=== PATIENT | female | born 1985 | race Caucasian/White ===

== ENCOUNTER 2019-11-18 15:03 | Inpatient (IN) | payer OTHER ==
--- NOTE | 2019-11-18 15:34 | BHS.RME ---
Substance Use & Tx History - Substance Use History Alcohol Substance amount: 1 liter vodka Frequency of use: Daily Substance route: Oral Date of Last Use: 11/13/19 Nicotine Substance amount: former smoker Physical/Psych/Mental Status - Behavior General Behavior: Increased activity (restlessness, agitation) Eye Contact: Normal - Cooperativeness Cooperativeness: Cooperative - Thinking Thought Processes: Tight, Logical, Goal Directed Thought content: Future oriented - Physical Health Problems Is patient presently having any pain?: No Does patient presently have any injuries (include location): No Does patient currently have a fever: No Is patient : No
[2019-11-18 18:55] VITALS: BMI 27.4
--- NOTE | 2019-11-18 18:56 | HP ---
CIWA Score - Admission Criteria OASAS Guidelines: Admission for Medically Managed Detox: Requires at least one of the followin. CIWA greater than 12 2. Seizures within the past 24 hours 3. Delirium tremens within the past 24 hours 4. Hallucinations within the past 24 hours 5. Acute intervention needed for co occurring medical disorder 6. Acute intervention needed for co occurring psychiatric disorder 7. Severe withdrawal that cannot be handled at a lower level of care (continued vomiting, continued diarrhea, abnormal vital signs) requiring intravenous medication and/or fluids 8. Admission ROS S - HPI Chief Complaint: Seeking admission to Rehab. Allergies/Adverse Reactions: Allergies Allergy/AdvReac Type Severity Reaction Status Date / Time No Known Allergies Allergy Verified 11/18/19 19:37 History of Present Illness: 34 years old female with a history of alcohol dependence is seeking admission to Rehab. She was referred from [facility]. She has medical history of anemia, pulmonary embolism, GERD and she denies psych. history and suicidal ideation at this time. She had Cepheid COVID - 19 PCR done on that was negative. Exam Limitations: No Limitations, Physical Impairment - Ebola screening Have you had contact with anyone from an Ebola affected area: No Have you been sick,other than usual withdrawal symptoms: No Do you have a fever: No - Review of Systems Constitutional: No Symptoms Reported EENT: reports: No Symptoms Reported Respiratory: reports: No Symptoms reported Cardiac: reports: No Symptoms Reported GI: reports: No Symptoms Reported : reports: No Symptoms Reported Musculoskeletal: reports: No Symptoms Reported Integumentary: reports: No Symptoms Reported, Rash Neuro: reports: No Symptoms reported Endocrine: reports: No Symptoms Reported Hematology: reports: No Symptoms Reported Psychiatric: reports: Mood/Affect Appropiate, Orientated x3 Other Systems: Reviewed and Negative Patient History - Patient Medical History Hx Anemia: Yes Hx Asthma: No Hx Chronic Obstructive Pulmonary Disease (COPD): No Hx Cancer: No Hx Cardiac Disorders: Yes (Pulmonary Embolism) Hx Congestive Heart Failure: No Hx Hypertension: No Hx Hypercholesterolemia: No Hx Pacemaker: No HX Cerebrovascular Accident: No Hx Seizures: No Hx Diabetes: No Hx Gastrointestinal Disorders: Yes (GERD) Hx Liver Disease: No Hx Genitourinary Disorders: No Hx Sexually Transmitted Disorders: No Hx Renal Disease (ESRD): No Hx Thyroid Disease: No Hx Human Immunodeficiency Virus (HIV): No (Negative 2019) Hx Hepatitis C: No Hx Depression: No Hx Suicide Attempt: No (Denies suicidal ideation at this time) Hx Bipolar Disorder: No Hx Schizophrenia: No - Patient Surgical History Past Surgical History: Yes Hx Neurologic Surgery: No Hx Cataract Extraction: No Hx Cardiac Surgery: No Hx Lung Surgery: No Hx Breast Surgery: No Hx Breast Biopsy: No Hx Abdominal Surgery: Yes (GASTRIC BYPASS 2004, ) Hx Appendectomy: No Hx Cholecystectomy: No Hx Genitourinary Surgery: No Hx Section: No Hx Orthopedic Surgery: No Hx Hysterectomy: No Other Surgical History: HERNIA REPAIR, INTUSSUSCEPTION Anesthesia Reaction: No - PPD History Previous Implant?: Yes Documented Results: Negative w/proof Implanted On Prior R Admission?: No PPD to be Administered?: Yes - Reproductive History Patient is a Female of Child Bearing Age (11 -55 yrs old): Yes LMP comment: IRREGULAR - Smoking Cessation Smoking history: Former smoker Have you smoked in the past 12 months: No Hx Chewing Tobacco Use: No Initiated information on smoking cessation: No - Substance & Tx. History Hx Alcohol Use: Yes Hx Substance Use: No Substance Use Type: Alcohol Hx Substance Use Treatment: Yes - Substances abused Alcohol Substance route: Oral Frequency: Daily Amount used: 1/2 LITER OF VODKA Age of first use: 33 Date of last use: 11/14/19 Admission Physical Exam BHS - Physical General Appearance: Yes: Within Normal Limits HEENTM: Yes: Within Normal Limits Respiratory: Yes: Lungs Clear, Normal Breath Sounds, No Respiratory Distress Neck: Yes: Within Normal Limits Breast: Yes: Breast Exam Deferred Cardiology: Yes: Regular Rhythm, Regular Rate Abdominal: Yes: Within Normal Limits Genitourinary: Yes: Within Normal Limits Back: Yes: Normal Inspection Musculoskeletal: Yes: Within Normal Limits Extremities: Yes: Within Normal Limits Neurological: Yes: Within Normal Limits Integumentary: Yes: Within Normal Limits Lymphatic: Yes: Within Normal Limits - Diagnostic (1) Alcohol dependence, uncomplicated Current Visit: Yes Status: Chronic (2) GERD (gastroesophageal reflux disease) Current Visit: Yes Status: Chronic Qualifiers: Esophagitis presence: esophagitis presence not specified Qualified Code(s): K21.9 - Gastro-esophageal reflux disease without esophagitis (3) Pulmonary embolism Current Visit: Yes Status: Chronic Qualifiers: Pulmonary embolism type: unspecified Chronicity: unspecified Acute cor pulmonale presence: unspecified Qualified Code(s): I26.99 - Other pulmonary embolism without acute cor pulmonale (4) Anemia Current Visit: Yes Status: Chronic Qualifiers: Anemia type: iron deficiency Cleared for Admission S - Detox or Rehab [facility] Level of Care: Observation Bed Claeared for Rehab Admission: Yes Inpatient Rehab Admission - Rehab Decision to Admit Inpatient rehab admission?: Yes - Initial Determination Are CD services needed?: No Free of communicable disease: Yes Not in need of hospitalization: Yes - Rehab Admission Criteria Previous failed treatment: Yes Poor recovery environment: Yes Comorbidities: Yes Lacks judgement: Yes Patient is meeting Inpatient Rehab admission criteria:: Yes
[2019-11-18] MEDS ORDERED: P-EPHED 60MG/TRIPROLIDI 2.5MG TABLET PO PRN (20:24)
[2019-11-18] MEDS ORDERED: MAGNESIUM CITRATE 300 ML BOTTLE PO PRN (20:24)
[2019-11-18] MEDS ORDERED: IBUPROFEN 400 MG TABLET (FP) PO PRN (20:24)
[2019-11-18] MEDS ORDERED: MAGNESIUM HYDROX 2400MG/30ML ORAL SUSPENSION 30 ML CUP PO PRN (20:24)
[2019-11-18] MEDS ORDERED: guaiFENesin 200 MG/10 ML 10 ML UNIT-DOSE CUPS PO PRN (20:24)
[2019-11-18] MEDS ORDERED: LOPERAMIDE HCL 2 MG CAPSULE PO PRN (20:24)
[2019-11-18] MEDS ORDERED: TUBERCULIN PPD 5 TU/0.1ML VIAL ID ONE (22:05)
[2019-11-18] MEDS: THIAMINE HCL 100 MG TABLET (FP) PO SCH (22:06)
[2019-11-18] MEDS: MELATONIN 5 MG TABLETS PO SCH (22:07)
[2019-11-19] MEDS: PRENATAL VITAMINS W/ FOLIC ACID TABLET (FP) PO SCH (09:16)
[2019-11-19] MEDS: APIXABAN 5 MG TABLET PO SCH ×2 (09:16→21:42)
[2019-11-19] MEDS ORDERED: BUPRENORPHINE/NALOXONE 8 MG/2 MG FILM PACKET SL ONE (09:30)
[2019-11-19 09:31] LABS: HEMATOCRIT 37.2 % (32.4-45.2); HEMOGLOBIN 12.5 GM/dL (10.7-15.3); MCHC 33.7 g/dl (32.0-36.0); MEAN PLT VOLUME 10.2 fl (7.5-11.1); PLATELET COUNT 254 K/MM3 (134-434); RDW 18.5 % (11.6-15.6); WHITE BLOOD COUNT 6.3 K/mm3 (4.0-10.0)
[2019-11-19 09:39] LABS: ALBUMIN 3.1 g/dl (3.4-5.0); BLOOD UREA NITROGEN 9.9 mg/dL (7-18); CALCIUM 8.3 mg/dL (8.5-10.1); CREATININE 0.5 mg/dL (0.55-1.3); POTASSIUM 4.3 mmol/L (3.5-5.1); TOT PROT 6.4 g/dl (6.4-8.2)
[2019-11-19 10:49] LABS: SICKLE CELL SCREEN NEGATIVE (NEGATIVE)
[2019-11-19] MEDS: BACITRACIN 0.9 GM PACKET TP SCH ×2 (12:53→21:43)
[2019-11-19] MEDS: hydrOXYzine PAMOATE 25 MG CAPSULE (FP) PO PRN ×2 (15:47→21:42)
[2019-11-19] MEDS ORDERED: PT OWN MED DRAWER 7, Y5N ONE (15:48)
[2019-11-19] MEDS: MAG HYDROX/AL HYDROX/SIMETH 30 ML UNIT-DOSE CUP PO PRN (15:49)
[2019-11-19] MEDS: MELATONIN 5 MG TABLETS PO SCH (21:42)
[2019-11-19] MEDS: THIAMINE HCL 100 MG TABLET (FP) PO SCH (21:42)
[2019-11-20] MEDS: BUPRENORPHINE/NALOXONE 8 MG/2 MG FILM PACKET SL SCH (06:24)
--- NOTE | 2019-11-20 09:34 | CONSULT ---
[facility] Psychiatric Consult - Data Date of interview: 11/20/19 Admission source: [facility] Identifying data: Patient is a 34 year old single female, mother of two, domiciled, and currently unemployed ( lost job due to COVID-19), and is supported with her financial savings. This is patient's first admission to rehab at [facility]. Patient admitted to for alcohol dependence. Substance Abuse History: Smoking Cessation. Smoking history: Former smoker. Have you smoked in the past 12 months: No. Hx Chewing Tobacco Use: No. Initiated information on smoking cessation: No. - Substance & Tx. History. Hx Alcohol Use: Yes. Hx Substance Use: No. Substance Use Type: Alcohol. Hx Substance Use Treatment: Yes. - Substances abused. Alcohol. Substance route: Oral. Frequency: Daily. Amount used: 1/2 LITER OF VODKA. Age of first use: 33. Date of last use: 11/14/19 Medical History: Anemia, pulmonary embolism, GERD, Gastric bypass, Psychiatric History: Patient denies history of psychiatric hospitalizations, outpatient psychiatric care and suicide attempt. Reports worsening anxiety since the start of COVID-19. States that she was started on zoloft (unsure of dose and did not take medication after d/c) while receiving medical care at [facility] due to withdrawals from alcohol. At present patient reports feeling anxious and difficulty sleeping. Physical/Sexual Abuse/Trauma History: denies. Mental Status Exam - Mental Status Exam Alert and Oriented to: Time, Place, Person Cognitive Function: Good Patient Appearance: Well Groomed Mood: Anxious Affect: Mood Congruent Patient Behavior: Cooperative (Tearful due to missing her children) Speech Pattern: Appropriate Voice Loudness: Normal Thought Process: Goal Oriented Thought Disorder: Not Present Hallucinations: Denies Suicidal Ideation: Denies Homicidal Ideation: Denies Insight/Judgement: Poor Sleep: Poorly Appetite: Poor Muscle strength/Tone: Normal Gait/Station: Normal Psychiatric Findings - Problem List ([place] 1, 2,3) (1) Alcohol-induced mood disorder Current Visit: Yes Status: Acute (2) Alcohol dependence, uncomplicated Current Visit: Yes Status: Acute (3) Alcohol-induced sleep disorder Current Visit: Yes Status: Acute - Initial Treatment Plan Initial Treatment Plan: Psychoeducation provided. Detoxification in progress. Will d/c Melatonin 5mg HS. Will Zoloft 50mg daily + Melatonin 10mg HS PRN. Benefits and side effects discussed. Verbal consent given.
[2019-11-20] MEDS: PRENATAL VITAMINS W/ FOLIC ACID TABLET (FP) PO SCH (09:52)
[2019-11-20] MEDS: BACITRACIN 0.9 GM PACKET TP SCH ×2 (09:52→21:25)
[2019-11-20] MEDS: APIXABAN 5 MG TABLET PO SCH ×2 (09:52→21:24)
[2019-11-20] MEDS: hydrOXYzine PAMOATE 25 MG CAPSULE (FP) PO PRN ×3 (09:52→21:24)
[2019-11-20] MEDS: SERTRALINE HCL 50 MG TABLET (FP) PO SCH (11:08)
[2019-11-20 15:16] LABS: PH,URINE 5.5 (5.0-8.0); URINE APPEARANCE CLOUDY; URINE BILIRUBIN NEGATIVE (NEGATIVE); URINE COLOR DK YELLOW; URINE GLUCOSE (UA) NEGATIVE (NEGATIVE); URINE KETONE NEGATIVE (NEGATIVE); URINE LEUK ESTERASE NEGATIVE (NEGATIVE); URINE NITRITE NEGATIVE (NEGATIVE); URINE PROTEIN NEGATIVE (NEGATIVE)
[2019-11-20] MEDS: THIAMINE HCL 100 MG TABLET (FP) PO SCH (21:24)
[2019-11-20] MEDS: MELATONIN 5 MG TABLETS PO SCH (21:25)
[2019-11-21] MEDS: ACETAMINOPHEN 325 MG TABLET (FP) PO PRN (06:19)
[2019-11-21] MEDS: BUPRENORPHINE/NALOXONE 8 MG/2 MG FILM PACKET SL SCH (06:19)
[2019-11-21] MEDS: SERTRALINE HCL 50 MG TABLET (FP) PO SCH (09:56)
[2019-11-21] MEDS: BACITRACIN 0.9 GM PACKET TP SCH ×2 (09:56→21:42)
[2019-11-21] MEDS: PRENATAL VITAMINS W/ FOLIC ACID TABLET (FP) PO SCH (09:56)
[2019-11-21] MEDS: hydrOXYzine PAMOATE 25 MG CAPSULE (FP) PO PRN ×3 (09:56→21:42)
[2019-11-21] MEDS: APIXABAN 5 MG TABLET PO SCH ×2 (09:56→21:42)
--- NOTE | 2019-11-21 11:45 | EKG ---
Test Reason : Blood Pressure : / mmHG Vent. Rate : 063 BPM Atrial Rate : 063 BPM P-R Int : 116 ms QRS Dur : 076 ms QT Int : 404 ms P-R-T Axes : 032 064 029 degrees QTc Int : 413 ms NORMAL SINUS RHYTHM NONSPECIFIC T WAVE ABNORMALITY ABNORMAL ECG NO PREVIOUS ECGS AVAILABLE Confirmed by BROOKE CASTLE MD ([id number]) on 11/21/2019 11:44:21 AM Referred By: Confirmed By:BROOKE CASTLE MD
[2019-11-21] MEDS ORDERED: BUPRENORPHINE/NALOXONE 2 MG/0.5 MG FILM PACKET SL ONE (15:18)
[2019-11-21] MEDS: MELATONIN 5 MG TABLETS PO SCH (21:42)
[2019-11-21] MEDS: THIAMINE HCL 100 MG TABLET (FP) PO SCH (21:42)
[2019-11-22] MEDS: BUPRENORPHINE/NALOXONE 8 MG/2 MG FILM PACKET SL SCH (06:30)
[2019-11-22] MEDS: hydrOXYzine PAMOATE 25 MG CAPSULE (FP) PO PRN ×3 (06:32→21:12)
[2019-11-22] MEDS: ACETAMINOPHEN 325 MG TABLET (FP) PO PRN (06:32)
[2019-11-22] MEDS ORDERED: BUPRENORPHINE/NALOXONE 2 MG/0.5 MG FILM PACKET SL SCH (10:00)
[2019-11-22] MEDS: APIXABAN 5 MG TABLET PO SCH ×2 (10:18→21:11)
[2019-11-22] MEDS: BACITRACIN 0.9 GM PACKET TP SCH ×2 (10:18→21:11)
[2019-11-22] MEDS: PRENATAL VITAMINS W/ FOLIC ACID TABLET (FP) PO SCH (10:19)
[2019-11-22] MEDS: SERTRALINE HCL 50 MG TABLET (FP) PO SCH (10:19)
[2019-11-22] MEDS: COLLOIDAL OATMEAL 1 BAR EACH TP PRN (14:36)
[2019-11-22] MEDS: MELATONIN 5 MG TABLETS PO SCH (21:11)
[2019-11-22] MEDS: THIAMINE HCL 100 MG TABLET (FP) PO SCH (21:12)
[2019-11-23] MEDS ORDERED: BUPRENORPHINE/NALOXONE 2 MG/0.5 MG FILM PACKET SL SCH ×2 (06:00→06:15)
[2019-11-23] MEDS: BUPRENORPHINE/NALOXONE 8 MG/2 MG FILM PACKET SL SCH (06:17)
[2019-11-23] MEDS: PRENATAL VITAMINS W/ FOLIC ACID TABLET (FP) PO SCH (09:47)
[2019-11-23] MEDS: APIXABAN 5 MG TABLET PO SCH ×2 (09:47→21:30)
[2019-11-23] MEDS: SERTRALINE HCL 50 MG TABLET (FP) PO SCH (09:48)
[2019-11-23] MEDS: FAMOTIDINE 20 MG TABLET PO SCH (09:48)
[2019-11-23] MEDS: hydrOXYzine PAMOATE 25 MG CAPSULE (FP) PO PRN ×3 (09:49→21:30)
[2019-11-23] MEDS ORDERED: PT OWN MED DRAWER 7, Y5N ONE ×3 (10:54→21:40)
[2019-11-23] MEDS: ARTIFICIAL TEARS (POLYVINYL ALCOHOL) OPTH DROPS OU PRN (10:55)
[2019-11-23] MEDS: VITAMINS A AND D TOPICAL OINTMENT 60 GM TUBE TP SCH ×2 (12:53→18:24)
[2019-11-23] MEDS: GABAPENTIN 300 MG CAPSULE PO SCH ×2 (13:56→21:30)
[2019-11-23] MEDS: DOCUSATE SODIUM 100 MG CAPSULE (FP) PO SCH ×2 (13:56→21:30)
[2019-11-23] MEDS: NEOMYCIN/POLYMYXIN/BACITRACIN (TRIPLE ANTIBIOTIC) 28 GM OINTMENT TP SCH ×2 (14:06→21:32)
[2019-11-23] MEDS: MAG HYDROX/AL HYDROX/SIMETH 30 ML UNIT-DOSE CUP PO PRN (14:37)
--- NOTE | 2019-11-23 14:40 | PN ---
BHS COWS - Scale Resting Pulse: 0= NM 80 or Below Sweatin= No chills or Flushing Restless Observation: 1= Difficult to Sit Still Pupil Size: 0= Normal to Room Light Bone or Joint Aches: 1= Mild Discomfort Runny Nose/ Eye Tearin= Nasal Congestion GI Upset > 30mins: 1= Stomach Cramp Tremor Observation of Outstretched Hands: 4= Gross Tremor/Twitching Yawning Observation: 0= None Anxiety or Irritability: 2=Irritable/Anxious Goose Flesh Skin: 0=Smooth Skin COWS Score: 10 BHS Progress Note (SOAP) Subjective: patient is not experiencing relief from cravings; she is presently on 10 mg daily. She states that her usual dose is 16 mg daily. Objective: general: patient appears anxious HEENTM: normocepehalic, EOMI, PERRLA. Neck:supple, Resp: unlabored ABD; +BS MSK: full weight bearing Neuro: No cognitive deficits 11/23/19 15:00 Assessment: Alcohol use disorder 11/23/19 15:02 Plan: Increased suboxone to 12 mg daily, will monitor.
[2019-11-23] MEDS ORDERED: BUPRENORPHINE/NALOXONE 2 MG/0.5 MG FILM PACKET SL ONE (14:45)
[2019-11-23] MEDS: THIAMINE HCL 100 MG TABLET (FP) PO SCH (21:30)
[2019-11-23] MEDS: MELATONIN 5 MG TABLETS PO SCH (21:31)
[2019-11-23] MEDS ORDERED: SENNOSIDES 8.6MG TABLET (FP) PO SCH (22:00)
[2019-11-24] MEDS: VITAMINS A AND D TOPICAL OINTMENT 60 GM TUBE TP SCH ×4 (00:16→18:02)
[2019-11-24] MEDS ORDERED: BUPRENORPHINE/NALOXONE 4 MG/1 MG FILM PACKET SL SCH (06:00)
[2019-11-24] MEDS ORDERED: PT OWN MED DRAWER 7, Y5N ONE ×3 (06:16→12:47)
[2019-11-24] MEDS: NEOMYCIN/POLYMYXIN/BACITRACIN (TRIPLE ANTIBIOTIC) 28 GM OINTMENT TP SCH ×3 (06:17→21:11)
[2019-11-24] MEDS: BUPRENORPHINE/NALOXONE 8 MG/2 MG FILM PACKET SL SCH (06:17)
[2019-11-24] MEDS: DOCUSATE SODIUM 100 MG CAPSULE (FP) PO SCH ×3 (06:17→21:09)
[2019-11-24] MEDS: GABAPENTIN 300 MG CAPSULE PO SCH (06:17)
[2019-11-24] MEDS: hydrOXYzine PAMOATE 25 MG CAPSULE (FP) PO PRN (08:43)
[2019-11-24] MEDS: APIXABAN 5 MG TABLET PO SCH ×2 (09:55→21:07)
[2019-11-24] MEDS: PRENATAL VITAMINS W/ FOLIC ACID TABLET (FP) PO SCH (09:55)
[2019-11-24] MEDS: ACETAMINOPHEN 325 MG TABLET (FP) PO PRN (09:56)
[2019-11-24] MEDS: SERTRALINE HCL 50 MG TABLET (FP) PO SCH (09:56)
[2019-11-24] MEDS: FAMOTIDINE 20 MG TABLET PO SCH (09:56)
[2019-11-24] MEDS: hydrOXYzine PAMOATE 50 MG CAPSULE (FP) PO PRN ×2 (12:45→21:08)
[2019-11-24] MEDS: ARTIFICIAL TEARS (POLYVINYL ALCOHOL) OPTH DROPS OU PRN (12:47)
--- NOTE | 2019-11-24 13:01 | PN ---
Psychiatric Progress Note Vital Signs: Vital Signs Period Temp Pulse Resp BP Sys/Daniels Pulse Ox Last 24 Hr 97.1 F 64 20 113/71 97-99 Date of Session: 11/24/19 Chief Complaint:: "I'm going through withdrawals." HPI: Patient admitted to for alcohol dependence. Consultation ordered due to patient c/o anxiety. ROS: Patient calm and cooperative at first but then became tearful and anxious, stating i am going through withdrawal Current Medications: Active Medications Generic Name Dose Route Start Last Admin Trade Name Freq PRN Reason Stop Dose Admin Acetaminophen 650 mg 11/18/19 20:24 11/24/19 09:56 Tylenol - PO 650 mg Q4H PRN Administration FEVER Al Hydroxide/Mg Hydroxide 30 ml 11/18/19 20:24 11/23/19 14:37 Mylanta Oral Suspension - PO 30 ml Q6H PRN Administration DYSPEPSIA Apixaban 5 mg 11/19/19 10:00 11/24/19 09:55 Eliquis - PO 5 mg BID SUKHJINDER Administration Artificial Tears 1 drop 11/22/19 12:21 11/24/19 12:47 Artificial Tears OU 1 drop TID PRN Administration DRY EYES Buprenorphine/Naloxone 1 each 11/20/19 06:00 11/24/19 06:17 Suboxone 8 Mg/2 Mg Film Packet SL 1 each DAILY@0600 SUKHJINDER Administration Buprenorphine/Naloxone 1 each 11/24/19 06:00 11/24/19 06:17 Suboxone 4 Mg/1 Mg Film Packet SL 1 each DAILY@0600 SUKHJINDER Administration Colloidal Oatmeal 1 applic 11/22/19 12:09 11/22/19 14:36 Aveeno Soap - TP 1 bar DAILY PRN Administration HYGEINE Docusate Sodium 100 mg 11/23/19 14:00 11/24/19 06:17 Colace - PO 100 mg TID SUKHJINDER Administration Famotidine 20 mg 11/23/19 10:00 11/24/19 09:56 Pepcid - PO 20 mg DAILY SUKHJINDER Administration Gabapentin 300 mg 11/23/19 14:00 11/24/19 06:17 Neurontin - PO 300 mg TID SUKHJINDER Administration Guaifenesin 10 ml 11/18/19 20:24 Robitussin - PO Q6H PRN COUGH Hydroxyzine Pamoate 50 mg 11/24/19 11:44 11/24/19 12:45 Vistaril - PO 50 mg Q6H PRN Administration ANXIETY Loperamide HCl 4 mg 11/18/19 20:24 Imodium - PO Q6H PRN DIARRHEA Magnesium Citrate 300 ml 11/18/19 20:24 Citroma - PO Q48H PRN CONSTIPATION Magnesium Hydroxide 30 ml 11/18/19 20:24 Milk Of Magnesia - PO DAILY PRN CONSTIPATION Melatonin 10 mg 11/20/19 22:00 11/23/19 21:31 Melatonin PO 10 mg HS SUKHJINDER Administration Multi-Ingredient Lotion 1 applic 11/24/19 12:57 Eucerin (Large Jar) - TP BID PRN DRY SKIN Neomycin/Polymyxin/Bacitracin 1 applic 11/23/19 14:00 11/24/19 06:17 Neosporin Topical Ointment - TP Not Given TID SUKHJINDER Multivit/Folic Acid/Iron 1 tab 11/19/19 10:00 11/24/19 09:55 Vitamins (Sjr) - PO 1 tab DAILY SUKHJINDER Administration Pseudoephedrine/Triprolidine 1 combo 11/18/19 20:24 Actifed - PO TID PRN NASAL CONGESTION Senna 8.6 tab 11/23/19 22:00 11/23/19 21:32 Senna - PO Not Given HS SUKHJINDER Sertraline HCl 50 mg 11/20/19 10:45 11/24/19 09:56 Zoloft - PO 50 mg DAILY SUKHJINDER Administration Thiamine HCl 100 mg 11/18/19 22:00 11/23/19 21:30 Vitamin B1 - PO 100 mg HS SUKHJINDER Administration Vitamin A/Vitamin D 1 applic 11/23/19 12:00 11/24/19 12:45 Vitamin A & D Top Oint - TP Not Given Q6HPO [facility] Medication(s) Change(s): Yes. Current Side Effect: No Lab tests ordered: No Lab tests reviewed: Yes Provider note:: Ms. Sauceda reports having worsening withdrawals which she states is making her anxious. In addition, Mr. Sauceda also reports difficulty sleeping through the night. Medications reviewed. Will d/c Vistaril 25mg q4h and will order vistaril 50mg q6h + Belsomra 10mg HS PRN. Case discussed with ZEB Wilson. As per ZEB Wilson, Plan is to increase suboxone + Gabapentin dose. Please review ZEB Wilson note for additional information. Total face to face time:: 25 Mental Status Exam - Mental Status Exam Alert and Oriented to: Time, Place, Person Cognitive Function: Good Patient Appearance: Well Groomed Mood: Anxious Affect: Mood Congruent Patient Behavior: Crying (Tearful), Cooperative Speech Pattern: Appropriate Voice Loudness: Normal Thought Process: Goal Oriented Thought Disorder: Not Present Hallucinations: Denies Suicidal Ideation: Denies Homicidal Ideation: Denies Insight/Judgement: Poor Sleep: Poorly Appetite: Fair Muscle strength/Tone: Normal Gait/Station: Normal Psychiatric Treatment Plan - Problem List (1) Alcohol-induced mood disorder Current Visit: Yes (2) Alcohol dependence, uncomplicated Current Visit: Yes (3) Alcohol-induced sleep disorder Current Visit: Yes
[2019-11-24] MEDS: GABAPENTIN 400 MG CAPSULE PO SCH ×2 (13:59→21:07)
[2019-11-24] MEDS ORDERED: BUPRENORPHINE/NALOXONE 8 MG/2 MG FILM PACKET SL SCH (14:00)
[2019-11-24] MEDS ORDERED: BUPRENORPHINE/NALOXONE 4 MG/1 MG FILM PACKET SL ONE (14:00)
[2019-11-24] MEDS: SENNOSIDES 8.6MG TABLET (FP) PO SCH (21:07)
[2019-11-24] MEDS: THIAMINE HCL 100 MG TABLET (FP) PO SCH (21:07)
[2019-11-24] MEDS: SUVOREXANT 10 MG TABLET PO PRN (21:08)
[2019-11-24] MEDS: MELATONIN 5 MG TABLETS PO SCH (21:08)
[2019-11-25] MEDS: VITAMINS A AND D TOPICAL OINTMENT 60 GM TUBE TP SCH ×4 (00:30→18:17)
[2019-11-25] MEDS ORDERED: PT OWN MED DRAWER 7, Y5N ONE ×4 (05:13→14:28)
[2019-11-25] MEDS: MINERAL OIL/PETROLAT/WATER TOPICAL CREAM 113 GM JAR TP PRN ×2 (06:09→09:36)
[2019-11-25] MEDS: GABAPENTIN 400 MG CAPSULE PO SCH ×3 (06:11→21:18)
[2019-11-25] MEDS: BUPRENORPHINE/NALOXONE 8 MG/2 MG FILM PACKET SL SCH ×2 (06:11→14:13)
[2019-11-25] MEDS: DOCUSATE SODIUM 100 MG CAPSULE (FP) PO SCH ×3 (06:11→21:18)
[2019-11-25] MEDS: NEOMYCIN/POLYMYXIN/BACITRACIN (TRIPLE ANTIBIOTIC) 28 GM OINTMENT TP SCH ×3 (06:12→21:20)
[2019-11-25] MEDS: hydrOXYzine PAMOATE 50 MG CAPSULE (FP) PO PRN ×3 (07:17→21:18)
[2019-11-25] MEDS: PRENATAL VITAMINS W/ FOLIC ACID TABLET (FP) PO SCH (09:36)
[2019-11-25] MEDS: APIXABAN 5 MG TABLET PO SCH ×2 (09:36→21:18)
[2019-11-25] MEDS: SERTRALINE HCL 50 MG TABLET (FP) PO SCH (09:36)
[2019-11-25] MEDS: FAMOTIDINE 20 MG TABLET PO SCH (09:37)
--- NOTE | 2019-11-25 12:02 | PN ---
[facility] Progress Note Note: PATIENT EVALUATED FOR REQUEST FOR CHEST XRAY. PATIENT INFORMED PROVIDER, SHE FEELS ANXIOUS ABOUT HER LUNGS AFTER BEING DX WITH PE. SHE REPORTS HAVING INTERMITTED PALPITATIONS (CAN BE ANXIETY RELATED) BUT DENIES COUGH, SOB AND CHEST PAIN. PATIENT IS ANXIOUS AND HAS BEEN EVALUATED BY PSYCH TEAM. CURRENTLY ON VISTARIL FOR SYMPTOM MANAGEMENT. PATIENT HAS HX OF GASTRIC BYPASS, ALCOHOL USE, OPIATE USE AND VAPING. Vital Signs Temperature 98.2 F 11/25/19 06:05 Pulse Rate 53 L 11/25/19 06:05 Respiratory Rate 16 11/25/19 06:05 Blood Pressure 114/76 11/25/19 06:05 O2 Sat by Pulse Oximetry (%) 98 11/25/19 06:05 Laboratory Tests 11/18/19 11/19/19 11/19/19 18:51 07:40 07:40 WBC 6.3 RBC 3.80 Hgb 12.5 Hct 37.2 MCV 98.0 H MCH 33.0 MCHC 33.7 RDW 18.5 H Plt Count 254 MPV 10.2 Sickle Cell Screen Negative Sodium 143 Potassium 4.3 Chloride 109 H Carbon Dioxide 27 Anion Gap 7 L BUN 9.9 Creatinine 0.5 L Est GFR (CKD-EPI)AfAm 144.31 Est GFR (CKD-EPI)NonAf 124.51 Random Glucose 80 Calcium 8.3 L Total Bilirubin 1.0 AST 108 H ALT 97 H Alkaline Phosphatase 170 H Total Protein 6.4 Albumin 3.1 L Urine Color Urine Appearance Urine pH Ur Specific [place] Urine Protein Urine Glucose (UA) Urine Ketones Urine Blood Urine Nitrite Urine Bilirubin Urine Urobilinogen Ur Leukocyte Esterase POC Urine HCG, Qual Negative Syphilis Serology 11/19/19 11/20/19 07:40 07:00 WBC RBC Hgb Hct MCV MCH MCHC RDW Plt Count MPV Sickle Cell Screen Sodium Potassium Chloride Carbon Dioxide Anion Gap BUN Creatinine Est GFR (CKD-EPI)AfAm Est GFR (CKD-EPI)NonAf Random Glucose Calcium Total Bilirubin AST ALT Alkaline Phosphatase Total Protein Albumin Urine Color Dk yellow Urine Appearance Cloudy Urine pH 5.5 Ur Specific [place] 1.018 Urine Protein Negative Urine Glucose (UA) Negative Urine Ketones Negative Urine Blood Negative Urine Nitrite Negative Urine Bilirubin Negative Urine Urobilinogen 1.0 Ur Leukocyte Esterase Negative POC Urine HCG, Qual Syphilis Serology Non-reactive PE ALERT AND ORIENTED X 3 SKIN WARM AND DRY +EOMS INTACT BREATHING WELL ON ROOM AIR, DENIES SOB AND PALPITATIONS AT THIS TIME ANXIOUS/TEARFUL EXT FULL ROM, AMB AD ESTEPHANIE +TREMORS DENIES SI/HI A/P: HX OF PE/VAPING/PALPITATION ANXIETY WILL ORDER CXR VISTARIL CONTINUED PER PSYCH ORDER WILL DISCUSS IF CLONIDINE ON NEEDED BASIS APPROPRIATE WITH DR. BRUNO BEFORE INITIATING TREATMENT SUBOXONE TO BE CHANGED TO 8MG-2MG SL 2 FILMS DAILY AT 6AM (PT REQUEST) CONTINUE TO MONITOR CLINICALLY
[2019-11-25] MEDS: ARTIFICIAL TEARS (POLYVINYL ALCOHOL) OPTH DROPS OU PRN (14:18)
[2019-11-25] MEDS: SUVOREXANT 10 MG TABLET PO PRN (21:18)
[2019-11-25] MEDS: THIAMINE HCL 100 MG TABLET (FP) PO SCH (21:18)
[2019-11-25] MEDS: SENNOSIDES 8.6MG TABLET (FP) PO SCH (21:19)
[2019-11-25] MEDS: MELATONIN 5 MG TABLETS PO SCH (21:20)
[2019-11-26] MEDS: VITAMINS A AND D TOPICAL OINTMENT 60 GM TUBE TP SCH ×5 (00:24→23:49)
[2019-11-26] MEDS: NEOMYCIN/POLYMYXIN/BACITRACIN (TRIPLE ANTIBIOTIC) 28 GM OINTMENT TP SCH ×3 (07:00→21:19)
[2019-11-26] MEDS: GABAPENTIN 400 MG CAPSULE PO SCH ×3 (07:01→21:16)
[2019-11-26] MEDS: DOCUSATE SODIUM 100 MG CAPSULE (FP) PO SCH ×3 (07:01→21:16)
[2019-11-26] MEDS: BUPRENORPHINE/NALOXONE 8 MG/2 MG FILM PACKET SL SCH ×2 (07:01→14:05)
[2019-11-26] MEDS: SERTRALINE HCL 50 MG TABLET (FP) PO SCH (10:06)
[2019-11-26] MEDS: PRENATAL VITAMINS W/ FOLIC ACID TABLET (FP) PO SCH (10:06)
[2019-11-26] MEDS: APIXABAN 5 MG TABLET PO SCH ×2 (10:06→21:15)
[2019-11-26] MEDS: FAMOTIDINE 20 MG TABLET PO SCH (10:06)
[2019-11-26] MEDS: hydrOXYzine PAMOATE 50 MG CAPSULE (FP) PO PRN ×2 (10:08→16:57)
[2019-11-26] MEDS: MINERAL OIL/PETROLAT/WATER TOPICAL CREAM 113 GM JAR TP PRN (10:10)
[2019-11-26] MEDS: ACETAMINOPHEN 325 MG TABLET (FP) PO PRN (10:11)
[2019-11-26] MEDS: SENNOSIDES 8.6MG TABLET (FP) PO SCH (21:15)
[2019-11-26] MEDS: THIAMINE HCL 100 MG TABLET (FP) PO SCH (21:16)
[2019-11-26] MEDS: SUVOREXANT 10 MG TABLET PO PRN (21:17)
[2019-11-26] MEDS: MELATONIN 5 MG TABLETS PO SCH (21:19)
[2019-11-27] MEDS ORDERED: PT OWN MED DRAWER 7, Y5N ONE ×2 (03:05→06:35)
[2019-11-27] MEDS: DOCUSATE SODIUM 100 MG CAPSULE (FP) PO SCH ×3 (06:33→21:40)
[2019-11-27] MEDS: NEOMYCIN/POLYMYXIN/BACITRACIN (TRIPLE ANTIBIOTIC) 28 GM OINTMENT TP SCH ×3 (06:33→21:40)
[2019-11-27] MEDS: VITAMINS A AND D TOPICAL OINTMENT 60 GM TUBE TP SCH ×4 (06:33→23:33)
[2019-11-27] MEDS: GABAPENTIN 400 MG CAPSULE PO SCH ×3 (06:33→21:39)
[2019-11-27] MEDS: BUPRENORPHINE/NALOXONE 8 MG/2 MG FILM PACKET SL SCH ×2 (06:34→13:50)
[2019-11-27] MEDS: MINERAL OIL/PETROLAT/WATER TOPICAL CREAM 113 GM JAR TP PRN (06:35)
[2019-11-27] MEDS: hydrOXYzine PAMOATE 50 MG CAPSULE (FP) PO PRN ×2 (10:13→21:39)
[2019-11-27] MEDS: APIXABAN 5 MG TABLET PO SCH ×2 (10:13→21:39)
[2019-11-27] MEDS: SERTRALINE HCL 50 MG TABLET (FP) PO SCH (10:13)
[2019-11-27] MEDS: FAMOTIDINE 20 MG TABLET PO SCH (10:13)
[2019-11-27] MEDS: PRENATAL VITAMINS W/ FOLIC ACID TABLET (FP) PO SCH (10:14)
[2019-11-27] MEDS: THIAMINE HCL 100 MG TABLET (FP) PO SCH (21:39)
[2019-11-27] MEDS: SENNOSIDES 8.6MG TABLET (FP) PO SCH (21:40)
[2019-11-27] MEDS: MELATONIN 5 MG TABLETS PO SCH (21:40)
[2019-11-27] MEDS: SUVOREXANT 10 MG TABLET PO PRN (21:42)
[2019-11-27] MEDS ORDERED: SUVOREXANT 10 MG TABLET PO PRN (22:00)
[2019-11-28] MEDS: VITAMINS A AND D TOPICAL OINTMENT 60 GM TUBE TP SCH ×3 (06:25→17:11)
[2019-11-28] MEDS: NEOMYCIN/POLYMYXIN/BACITRACIN (TRIPLE ANTIBIOTIC) 28 GM OINTMENT TP SCH ×3 (06:25→21:34)
[2019-11-28] MEDS: GABAPENTIN 400 MG CAPSULE PO SCH ×3 (06:26→21:33)
[2019-11-28] MEDS: DOCUSATE SODIUM 100 MG CAPSULE (FP) PO SCH ×3 (06:26→21:34)
[2019-11-28] MEDS: BUPRENORPHINE/NALOXONE 8 MG/2 MG FILM PACKET SL SCH (06:26)
[2019-11-28] MEDS: SERTRALINE HCL 50 MG TABLET (FP) PO SCH (09:57)
[2019-11-28] MEDS: PRENATAL VITAMINS W/ FOLIC ACID TABLET (FP) PO SCH (09:57)
[2019-11-28] MEDS: hydrOXYzine PAMOATE 50 MG CAPSULE (FP) PO PRN ×3 (09:57→22:32)
[2019-11-28] MEDS: FAMOTIDINE 20 MG TABLET PO SCH (09:57)
[2019-11-28] MEDS: APIXABAN 5 MG TABLET PO SCH ×2 (09:57→21:33)
[2019-11-28] MEDS: MINERAL OIL/PETROLAT/WATER TOPICAL CREAM 113 GM JAR TP PRN (09:58)
[2019-11-28] MEDS ORDERED: BUPRENORPHINE/NALOXONE 8 MG/2 MG FILM PACKET SL ONE (11:06)
--- NOTE | 2019-11-28 12:51 | PN ---
S Progress Note Note: Patient reports sleeping poorly despite taking Belsomra 10 mg/hs prn. Will increase Belsomra dosage to 15 mg/hs prn
--- NOTE | 2019-11-28 13:03 | PN ---
[facility] Progress Note Note: Patient seen for follow up CXR also requesting to be evaluated by psych due to poor sleep. Vital Signs Temperature 97.0 F L 11/28/19 06:25 Pulse Rate 54 L 11/28/19 06:25 Respiratory Rate 187 H 11/28/19 06:25 Blood Pressure 111/75 11/28/19 06:25 O2 Sat by Pulse Oximetry (%) 100 11/28/19 06:25 Laboratory Tests 11/18/19 11/19/19 11/19/19 18:51 07:40 07:40 WBC 6.3 RBC 3.80 Hgb 12.5 Hct 37.2 MCV 98.0 H MCH 33.0 MCHC 33.7 RDW 18.5 H Plt Count 254 MPV 10.2 Sickle Cell Screen Negative Sodium 143 Potassium 4.3 Chloride 109 H Carbon Dioxide 27 Anion Gap 7 L BUN 9.9 Creatinine 0.5 L Est GFR (CKD-EPI)AfAm 144.31 Est GFR (CKD-EPI)NonAf 124.51 Random Glucose 80 Calcium 8.3 L Total Bilirubin 1.0 AST 108 H ALT 97 H Alkaline Phosphatase 170 H Total Protein 6.4 Albumin 3.1 L Urine Color Urine Appearance Urine pH Ur Specific [place] Urine Protein Urine Glucose (UA) Urine Ketones Urine Blood Urine Nitrite Urine Bilirubin Urine Urobilinogen Ur Leukocyte Esterase POC Urine HCG, Qual Negative Syphilis Serology 11/19/19 11/20/19 07:40 07:00 WBC RBC Hgb Hct MCV MCH MCHC RDW Plt Count MPV Sickle Cell Screen Sodium Potassium Chloride Carbon Dioxide Anion Gap BUN Creatinine Est GFR (CKD-EPI)AfAm Est GFR (CKD-EPI)NonAf Random Glucose Calcium Total Bilirubin AST ALT Alkaline Phosphatase Total Protein Albumin Urine Color Dk yellow Urine Appearance Cloudy Urine pH 5.5 Ur Specific [place] 1.018 Urine Protein Negative Urine Glucose (UA) Negative Urine Ketones Negative Urine Blood Negative Urine Nitrite Negative Urine Bilirubin Negative Urine Urobilinogen 1.0 Ur Leukocyte Esterase Negative POC Urine HCG, Qual Syphilis Serology Non-reactive ROS: denies cough, sob and fever. Complains of poor sleep despite taking Belsomra. PE alert and oriented x 3 skin warm and dry in no acute distress ext amb ad [place], full rom mild tremors (improved since last exam) A/P: Normal CXR Insomnia Psych consult ordered continue with rehab services
[2019-11-28] MEDS ORDERED: PT OWN MED DRAWER 7, Y5N ONE (18:47)
[2019-11-28] MEDS: THIAMINE HCL 100 MG TABLET (FP) PO SCH (21:34)
[2019-11-28] MEDS: MELATONIN 5 MG TABLETS PO SCH (21:34)
[2019-11-28] MEDS: SENNOSIDES 8.6MG TABLET (FP) PO SCH (21:34)
[2019-11-28] MEDS ORDERED: SUVOREXANT 15 MG TABLET PO PRN (22:00)
[2019-11-28] MEDS: MAG HYDROX/AL HYDROX/SIMETH 30 ML UNIT-DOSE CUP PO PRN (22:31)
[2019-11-29] MEDS: VITAMINS A AND D TOPICAL OINTMENT 60 GM TUBE TP SCH ×5 (00:30→23:48)
[2019-11-29] MEDS: GABAPENTIN 400 MG CAPSULE PO SCH ×3 (06:18→21:18)
[2019-11-29] MEDS: DOCUSATE SODIUM 100 MG CAPSULE (FP) PO SCH ×3 (06:18→21:18)
[2019-11-29] MEDS: hydrOXYzine PAMOATE 50 MG CAPSULE (FP) PO PRN ×3 (06:18→21:18)
[2019-11-29] MEDS: BUPRENORPHINE/NALOXONE 8 MG/2 MG FILM PACKET SL SCH (06:19)
[2019-11-29] MEDS: NEOMYCIN/POLYMYXIN/BACITRACIN (TRIPLE ANTIBIOTIC) 28 GM OINTMENT TP SCH ×3 (06:22→21:19)
[2019-11-29] MEDS ORDERED: MASKS NR ONE (08:52)
[2019-11-29] MEDS: APIXABAN 5 MG TABLET PO SCH ×2 (09:51→21:18)
[2019-11-29] MEDS: PRENATAL VITAMINS W/ FOLIC ACID TABLET (FP) PO SCH (09:51)
[2019-11-29] MEDS: SERTRALINE HCL 50 MG TABLET (FP) PO SCH (09:51)
[2019-11-29] MEDS: MINERAL OIL/PETROLAT/WATER TOPICAL CREAM 113 GM JAR TP PRN (09:51)
[2019-11-29] MEDS: FAMOTIDINE 20 MG TABLET PO SCH (09:51)
[2019-11-29] MEDS: MAG HYDROX/AL HYDROX/SIMETH 30 ML UNIT-DOSE CUP PO PRN (14:46)
--- NOTE | 2019-11-29 14:55 | PN ---
BHS Progress Note Note: Patient with c/o ankle edema. Vital Signs Period Temp Pulse Resp BP Sys/Daniels Pulse Ox Last 24 Hr 97.1 F 78 20 104/69 98-100 General: no apparent distress HEENTM: normocephalic Neck: supple Resp: unlabored MSK: full weight bearing, steady gait Extremities: bilateral edema, non-pitting ankles only. LE edema EVAN Stockings ordered Instructed patient to elevate legs when at rest Walk frequently in hallway.
--- NOTE | 2019-11-29 15:06 | PN ---
BHS Progress Note Note: Patient not responding to Belsomra 15 mg/hs prn for insomnia. Will increase Belsomra dose to 20 mg/hs prn
[2019-11-29] MEDS ORDERED: PT OWN MED DRAWER 7, Y5N ONE (15:38)
[2019-11-29] MEDS: SUVOREXANT 10 MG TABLET PO PRN (21:17)
[2019-11-29] MEDS: SENNOSIDES 8.6MG TABLET (FP) PO SCH (21:18)
[2019-11-29] MEDS: MELATONIN 5 MG TABLETS PO SCH (21:19)
[2019-11-29] MEDS: THIAMINE HCL 100 MG TABLET (FP) PO SCH (21:19)
[2019-11-29] MEDS: COLLOIDAL OATMEAL 1 BAR EACH TP PRN (21:49)
[2019-11-30] MEDS ORDERED: PT OWN MED DRAWER 7, Y5N ONE (06:26)
[2019-11-30] MEDS: MINERAL OIL/PETROLAT/WATER TOPICAL CREAM 113 GM JAR TP PRN (06:26)
[2019-11-30] MEDS: VITAMINS A AND D TOPICAL OINTMENT 60 GM TUBE TP SCH ×3 (06:27→19:47)
[2019-11-30] MEDS: hydrOXYzine PAMOATE 50 MG CAPSULE (FP) PO PRN ×3 (06:27→21:32)
[2019-11-30] MEDS: NEOMYCIN/POLYMYXIN/BACITRACIN (TRIPLE ANTIBIOTIC) 28 GM OINTMENT TP SCH ×3 (06:27→21:34)
[2019-11-30] MEDS: DOCUSATE SODIUM 100 MG CAPSULE (FP) PO SCH ×3 (06:27→21:33)
[2019-11-30] MEDS: GABAPENTIN 400 MG CAPSULE PO SCH ×3 (06:27→21:32)
[2019-11-30] MEDS: BUPRENORPHINE/NALOXONE 8 MG/2 MG FILM PACKET SL SCH (06:27)
[2019-11-30] MEDS: PRENATAL VITAMINS W/ FOLIC ACID TABLET (FP) PO SCH (09:47)
[2019-11-30] MEDS: APIXABAN 5 MG TABLET PO SCH ×2 (09:48→21:32)
[2019-11-30] MEDS: SERTRALINE HCL 50 MG TABLET (FP) PO SCH (09:48)
[2019-11-30] MEDS: FAMOTIDINE 20 MG TABLET PO SCH (09:50)
[2019-11-30] MEDS: THIAMINE HCL 100 MG TABLET (FP) PO SCH (21:32)
[2019-11-30] MEDS: SENNOSIDES 8.6MG TABLET (FP) PO SCH (21:32)
[2019-11-30] MEDS: SUVOREXANT 10 MG TABLET PO PRN (21:33)
[2019-11-30] MEDS: MELATONIN 5 MG TABLETS PO SCH (21:34)
[2019-12-01] MEDS: BUPRENORPHINE/NALOXONE 8 MG/2 MG FILM PACKET SL SCH (06:27)
[2019-12-01] MEDS: VITAMINS A AND D TOPICAL OINTMENT 60 GM TUBE TP SCH ×5 (06:30→23:42)
[2019-12-01] MEDS: NEOMYCIN/POLYMYXIN/BACITRACIN (TRIPLE ANTIBIOTIC) 28 GM OINTMENT TP SCH ×3 (06:30→21:23)
[2019-12-01] MEDS: MINERAL OIL/PETROLAT/WATER TOPICAL CREAM 113 GM JAR TP PRN (06:30)
[2019-12-01] MEDS: DOCUSATE SODIUM 100 MG CAPSULE (FP) PO SCH ×3 (06:30→21:23)
[2019-12-01] MEDS: GABAPENTIN 400 MG CAPSULE PO SCH ×3 (07:05→21:22)
[2019-12-01] MEDS: SERTRALINE HCL 50 MG TABLET (FP) PO SCH (09:45)
[2019-12-01] MEDS: PRENATAL VITAMINS W/ FOLIC ACID TABLET (FP) PO SCH (09:45)
[2019-12-01] MEDS: APIXABAN 5 MG TABLET PO SCH ×2 (09:45→21:22)
[2019-12-01] MEDS: FAMOTIDINE 20 MG TABLET PO SCH (09:46)
[2019-12-01] MEDS: ACETAMINOPHEN 325 MG TABLET (FP) PO PRN (09:46)
--- NOTE | 2019-12-01 10:10 | PN ---
Psychiatric Progress Note Vital Signs: Vital Signs Period Temp Pulse Resp BP Sys/Daniels Pulse Ox Last 24 Hr 97.5 F 62 20 113/67 98-99 Date of Session: 12/01/19 Chief Complaint:: "I feel anxious, sometimes sad, and still can't sleep." HPI: Patient admitted to for alcohol dependence. Consultation ordered due to patient reporting anxiety and insomnia. ROS: Patient is alert +oriented X3, cooperative but anxious. Current Medications: Active Medications Generic Name Dose Route Start Last Admin Trade Name Freq PRN Reason Stop Dose Admin Acetaminophen 650 mg 11/18/19 20:24 12/01/19 09:46 Tylenol - PO 650 mg Q4H PRN Administration FEVER Al Hydroxide/Mg Hydroxide 30 ml 11/18/19 20:24 11/29/19 14:46 Mylanta Oral Suspension - PO 30 ml Q6H PRN Administration DYSPEPSIA Apixaban 5 mg 11/19/19 10:00 12/01/19 09:45 Eliquis - PO 5 mg BID SUKHJINDER Administration Artificial Tears 1 drop 11/22/19 12:21 11/25/19 14:18 Artificial Tears OU 1 drop TID PRN Administration DRY EYES Buprenorphine/Naloxone 2 each 11/29/19 06:00 12/01/19 06:27 Suboxone 8 Mg/2 Mg Film Packet SL 12/05/19 05:59 2 each DAILY@0600 SUKHJINDER Administration Clonidine 0.1 mg 11/25/19 12:32 Catapres - PO DAILY PRN ANXIETY Colloidal Oatmeal 1 applic 11/22/19 12:09 11/29/19 21:49 Aveeno Soap - TP 1 bar DAILY PRN Administration HYGEINE Docusate Sodium 100 mg 11/23/19 14:00 12/01/19 06:30 Colace - PO 100 mg TID SUKHJINDER Administration Famotidine 20 mg 11/23/19 10:00 12/01/19 09:46 Pepcid - PO 20 mg DAILY SUKHJINDER Administration Gabapentin 400 mg 11/24/19 14:00 12/01/19 07:05 Neurontin - PO 400 mg TID SUKHJINDER Administration Guaifenesin 10 ml 11/18/19 20:24 Robitussin - PO Q6H PRN COUGH Hydroxyzine Pamoate 50 mg 11/24/19 11:44 09/23/20 21:32 Vistaril - PO 50 mg Q6H PRN Administration ANXIETY Loperamide HCl 4 mg 11/18/19 20:24 Imodium - PO Q6H PRN DIARRHEA Magnesium Citrate 300 ml 11/18/19 20:24 Citroma - PO Q48H PRN CONSTIPATION Magnesium Hydroxide 30 ml 11/18/19 20:24 Milk Of Magnesia - PO DAILY PRN CONSTIPATION Melatonin 10 mg 11/20/19 22:00 11/30/19 21:34 Melatonin PO 10 mg HS SUKHJINDER Administration Multi-Ingredient Lotion 1 applic 11/24/19 12:57 12/01/19 06:30 Eucerin (Small Jar) - TP 1 applic BID PRN Administration DRY SKIN Neomycin/Polymyxin/Bacitracin 1 applic 11/23/19 14:00 12/01/19 06:30 Neosporin Topical Ointment - TP 1 applic TID SUKHJINDER Administration Multivit/Folic Acid/Iron 1 tab 11/19/19 10:00 12/01/19 09:45 Vitamins (Sjr) - PO 1 tab DAILY SUKHJINDER Administration Pseudoephedrine/Triprolidine 1 combo 11/18/19 20:24 Actifed - PO TID PRN NASAL CONGESTION Senna 1 tab 11/24/19 22:00 11/30/19 21:32 Senna - PO Not Given HS SUKHJINDER Suvorexant 20 mg 11/29/19 22:00 11/30/19 21:33 Belsomra PO 12/02/19 21:59 20 mg HS PRN Administration INSOMNIA Thiamine HCl 100 mg 11/18/19 22:00 11/30/19 21:32 Vitamin B1 - PO 100 mg HS SUKHJINDER Administration Trazodone HCl 50 mg 12/01/19 22:00 Desyrel - PO HS SUKHJINDER Vitamin A/Vitamin D 1 applic 11/23/19 12:00 12/01/19 07:05 Vitamin A & D Top Oint - TP 1 applic Q6HPO SUKHJINDER Administration Medication(s) Change(s): Yes. 1)Will d/c Zoloft 50mg daily. 2) Will order Zoloft 100mg daily + Trazodone 50mg HS. Benefits and side effects discussed. Verbal consent given. Current Side Effect: No Lab tests ordered: No Lab tests reviewed: Yes Provider note:: Chart reviewed. Patient with a history of alcohol dependence. Today patient reports continued anxiety, moments of sadness, and poor sleep since admission. Medications reviewed. Patient given positive reassurance and educated on the importance of utilizing her coping skills. Medications to be adjusted (please review section of medication changes). Patient denies thoughts or urges to hurt self or others. Total face to face time:: 25 Mental Status Exam - Mental Status Exam Alert and Oriented to: Time, Place, Person Cognitive Function: Good Patient Appearance: Well Groomed Mood: Anxious Affect: Mood Congruent Patient Behavior: Cooperative Speech Pattern: Appropriate Voice Loudness: Normal Thought Process: Intact, Goal Oriented Thought Disorder: Not Present Hallucinations: Denies Suicidal Ideation: Denies Homicidal Ideation: Denies Insight/Judgement: Poor Sleep: Poorly Appetite: Fair Muscle strength/Tone: Normal Gait/Station: Normal Psychiatric Treatment Plan - Problem List (1) Alcohol-induced mood disorder Current Visit: Yes (2) Alcohol dependence, uncomplicated Current Visit: Yes (3) Alcohol-induced sleep disorder Current Visit: Yes
[2019-12-01] MEDS ORDERED: PT OWN MED DRAWER 7, Y5N ONE (14:55)
[2019-12-01] MEDS: hydrOXYzine PAMOATE 50 MG CAPSULE (FP) PO PRN ×2 (15:02→21:22)
[2019-12-01] MEDS: MAG HYDROX/AL HYDROX/SIMETH 30 ML UNIT-DOSE CUP PO PRN (15:32)
[2019-12-01] MEDS: THIAMINE HCL 100 MG TABLET (FP) PO SCH (21:22)
[2019-12-01] MEDS: SENNOSIDES 8.6MG TABLET (FP) PO SCH (21:23)
[2019-12-01] MEDS: MELATONIN 5 MG TABLETS PO SCH (21:23)
[2019-12-01] MEDS: traZODone HCL 50 MG TABLET (FP) PO SCH (21:24)
[2019-12-01] MEDS: SUVOREXANT 10 MG TABLET PO PRN (21:24)
[2019-12-02] MEDS: GABAPENTIN 400 MG CAPSULE PO SCH ×3 (06:25→21:59)
[2019-12-02] MEDS: NEOMYCIN/POLYMYXIN/BACITRACIN (TRIPLE ANTIBIOTIC) 28 GM OINTMENT TP SCH ×3 (06:25→22:01)
[2019-12-02] MEDS: BUPRENORPHINE/NALOXONE 8 MG/2 MG FILM PACKET SL SCH (06:25)
[2019-12-02] MEDS: hydrOXYzine PAMOATE 50 MG CAPSULE (FP) PO PRN ×3 (06:25→17:33)
[2019-12-02] MEDS: DOCUSATE SODIUM 100 MG CAPSULE (FP) PO SCH ×3 (06:25→22:01)
[2019-12-02] MEDS: VITAMINS A AND D TOPICAL OINTMENT 60 GM TUBE TP SCH ×3 (06:27→19:18)
[2019-12-02] MEDS ORDERED: PT OWN MED DRAWER 7, Y5N ONE ×4 (06:29→22:06)
[2019-12-02] MEDS: MINERAL OIL/PETROLAT/WATER TOPICAL CREAM 113 GM JAR TP PRN ×2 (06:29→12:11)
[2019-12-02] MEDS: APIXABAN 5 MG TABLET PO SCH ×2 (09:40→22:00)
[2019-12-02] MEDS: SERTRALINE HCL 50 MG TABLET (FP) PO SCH (09:40)
[2019-12-02] MEDS: FAMOTIDINE 20 MG TABLET PO SCH (09:41)
[2019-12-02] MEDS: PRENATAL VITAMINS W/ FOLIC ACID TABLET (FP) PO SCH (09:41)
[2019-12-02] MEDS: cloNIDine HCL 0.1 MG TABLET PO PRN (09:42)
--- NOTE | 2019-12-02 09:57 | PN ---
[facility] Progress Note Note: Vital Signs Temperature 97.6 F 12/02/19 06:58 Pulse Rate 58 L 12/02/19 06:58 Respiratory Rate 18 12/02/19 06:58 Blood Pressure 113/69 12/02/19 06:58 O2 Sat by Pulse Oximetry (%) 96 12/02/19 06:58 Laboratory Tests 11/18/19 11/19/19 11/19/19 18:51 07:40 07:40 WBC 6.3 RBC 3.80 Hgb 12.5 Hct 37.2 MCV 98.0 H MCH 33.0 MCHC 33.7 RDW 18.5 H Plt Count 254 MPV 10.2 Sickle Cell Screen Negative Sodium 143 Potassium 4.3 Chloride 109 H Carbon Dioxide 27 Anion Gap 7 L BUN 9.9 Creatinine 0.5 L Est GFR (CKD-EPI)AfAm 144.31 Est GFR (CKD-EPI)NonAf 124.51 Random Glucose 80 Calcium 8.3 L Total Bilirubin 1.0 AST 108 H ALT 97 H Alkaline Phosphatase 170 H Total Protein 6.4 Albumin 3.1 L Urine Color Urine Appearance Urine pH Ur Specific [place] Urine Protein Urine Glucose (UA) Urine Ketones Urine Blood Urine Nitrite Urine Bilirubin Urine Urobilinogen Ur Leukocyte Esterase POC Urine HCG, Qual Negative Syphilis Serology 11/19/19 11/20/19 07:40 07:00 WBC RBC Hgb Hct MCV MCH MCHC RDW Plt Count MPV Sickle Cell Screen Sodium Potassium Chloride Carbon Dioxide Anion Gap BUN Creatinine Est GFR (CKD-EPI)AfAm Est GFR (CKD-EPI)NonAf Random Glucose Calcium Total Bilirubin AST ALT Alkaline Phosphatase Total Protein Albumin Urine Color Dk yellow Urine Appearance Cloudy Urine pH 5.5 Ur Specific [place] 1.018 Urine Protein Negative Urine Glucose (UA) Negative Urine Ketones Negative Urine Blood Negative Urine Nitrite Negative Urine Bilirubin Negative Urine Urobilinogen 1.0 Ur Leukocyte Esterase Negative POC Urine HCG, Qual Syphilis Serology Non-reactive Follow up swelling of BLE ROS: + c/o numbness and burning to feet, states " my swelling went down" PE alert and oriented x 3 skin warm and dry +perrla, eoms intact bl gi nt, nd ext full rom, amb ad [place] no edema A/P: edema- resolved continue agustina stockings, likely neuropathic pain- on gabapentin monitor clinically
[2019-12-02] MEDS: SUVOREXANT 10 MG TABLET PO PRN (21:58)
[2019-12-02] MEDS: THIAMINE HCL 100 MG TABLET (FP) PO SCH (21:59)
[2019-12-02] MEDS: traZODone HCL 50 MG TABLET (FP) PO SCH (22:00)
[2019-12-02] MEDS: MELATONIN 5 MG TABLETS PO SCH (22:00)
[2019-12-02] MEDS: ACETAMINOPHEN 325 MG TABLET (FP) PO PRN (22:00)
[2019-12-02] MEDS: SENNOSIDES 8.6MG TABLET (FP) PO SCH (22:01)
[2019-12-03] MEDS: VITAMINS A AND D TOPICAL OINTMENT 60 GM TUBE TP SCH ×5 (00:30→23:22)
[2019-12-03] MEDS: NEOMYCIN/POLYMYXIN/BACITRACIN (TRIPLE ANTIBIOTIC) 28 GM OINTMENT TP SCH ×3 (06:32→21:28)
[2019-12-03] MEDS: DOCUSATE SODIUM 100 MG CAPSULE (FP) PO SCH ×3 (06:32→21:28)
[2019-12-03] MEDS: GABAPENTIN 400 MG CAPSULE PO SCH ×3 (06:32→21:28)
[2019-12-03] MEDS: BUPRENORPHINE/NALOXONE 8 MG/2 MG FILM PACKET SL SCH (06:33)
[2019-12-03] MEDS: cloNIDine HCL 0.1 MG TABLET PO PRN (06:35)
[2019-12-03] MEDS: hydrOXYzine PAMOATE 50 MG CAPSULE (FP) PO PRN ×3 (06:35→21:27)
[2019-12-03] MEDS ORDERED: PT OWN MED DRAWER 7, Y5N ONE ×2 (06:49→13:24)
[2019-12-03] MEDS: FAMOTIDINE 20 MG TABLET PO SCH (09:56)
[2019-12-03] MEDS: APIXABAN 5 MG TABLET PO SCH ×2 (09:56→21:27)
[2019-12-03] MEDS: PRENATAL VITAMINS W/ FOLIC ACID TABLET (FP) PO SCH (09:57)
[2019-12-03] MEDS: SERTRALINE HCL 50 MG TABLET (FP) PO SCH (09:57)
[2019-12-03] MEDS: MINERAL OIL/PETROLAT/WATER TOPICAL CREAM 113 GM JAR TP PRN (09:58)
--- NOTE | 2019-12-03 19:46 | PN ---
[facility] Progress Note Note: Vital Signs Temperature 97.5 F L 12/03/19 06:29 Pulse Rate 60 12/03/19 06:29 Respiratory Rate 18 12/03/19 06:29 Blood Pressure 110/71 12/03/19 06:29 O2 Sat by Pulse Oximetry (%) 98 12/03/19 13:44 Patient on Belsomra for insomnia, order requires renewal, no psych in building. One time order for tonight placed. Continue to monitor
[2019-12-03] MEDS ORDERED: SUVOREXANT 10 MG TABLET PO ONE (20:00)
[2019-12-03] MEDS: THIAMINE HCL 100 MG TABLET (FP) PO SCH (21:26)
[2019-12-03] MEDS: traZODone HCL 50 MG TABLET (FP) PO SCH (21:27)
[2019-12-03] MEDS: MELATONIN 5 MG TABLETS PO SCH (21:28)
[2019-12-03] MEDS: SENNOSIDES 8.6MG TABLET (FP) PO SCH (21:28)
[2019-12-04] MEDS: BUPRENORPHINE/NALOXONE 8 MG/2 MG FILM PACKET SL SCH (06:46)
[2019-12-04] MEDS: DOCUSATE SODIUM 100 MG CAPSULE (FP) PO SCH ×3 (06:46→21:12)
[2019-12-04] MEDS: GABAPENTIN 400 MG CAPSULE PO SCH ×3 (06:46→21:11)
[2019-12-04] MEDS: cloNIDine HCL 0.1 MG TABLET PO PRN (06:47)
[2019-12-04] MEDS: NEOMYCIN/POLYMYXIN/BACITRACIN (TRIPLE ANTIBIOTIC) 28 GM OINTMENT TP SCH ×3 (06:48→21:12)
[2019-12-04] MEDS: hydrOXYzine PAMOATE 50 MG CAPSULE (FP) PO PRN ×3 (06:48→21:11)
[2019-12-04] MEDS: VITAMINS A AND D TOPICAL OINTMENT 60 GM TUBE TP SCH ×4 (06:48→23:57)
[2019-12-04] MEDS: MINERAL OIL/PETROLAT/WATER TOPICAL CREAM 113 GM JAR TP PRN (09:43)
[2019-12-04] MEDS: APIXABAN 5 MG TABLET PO SCH ×2 (09:43→21:11)
[2019-12-04] MEDS: SERTRALINE HCL 50 MG TABLET (FP) PO SCH (09:44)
[2019-12-04] MEDS: FAMOTIDINE 20 MG TABLET PO SCH (09:44)
[2019-12-04] MEDS: PRENATAL VITAMINS W/ FOLIC ACID TABLET (FP) PO SCH (09:44)
[2019-12-04] MEDS: traZODone HCL 50 MG TABLET (FP) PO SCH (21:11)
[2019-12-04] MEDS: THIAMINE HCL 100 MG TABLET (FP) PO SCH (21:11)
[2019-12-04] MEDS: SENNOSIDES 8.6MG TABLET (FP) PO SCH (21:12)
[2019-12-04] MEDS: MELATONIN 5 MG TABLETS PO SCH (21:12)
[2019-12-05] MEDS ORDERED: BUPRENORPHINE/NALOXONE 8 MG/2 MG FILM PACKET SL SCH (01:52)
[2019-12-05] MEDS: hydrOXYzine PAMOATE 50 MG CAPSULE (FP) PO PRN ×3 (06:18→21:17)
[2019-12-05] MEDS: GABAPENTIN 400 MG CAPSULE PO SCH ×3 (06:18→21:17)
[2019-12-05] MEDS: BUPRENORPHINE/NALOXONE 8 MG/2 MG FILM PACKET SL SCH (06:18)
[2019-12-05] MEDS: DOCUSATE SODIUM 100 MG CAPSULE (FP) PO SCH ×3 (06:18→21:19)
[2019-12-05] MEDS: cloNIDine HCL 0.1 MG TABLET PO PRN (06:18)
[2019-12-05] MEDS: VITAMINS A AND D TOPICAL OINTMENT 60 GM TUBE TP SCH ×3 (06:20→18:33)
[2019-12-05] MEDS: NEOMYCIN/POLYMYXIN/BACITRACIN (TRIPLE ANTIBIOTIC) 28 GM OINTMENT TP SCH ×3 (06:20→21:18)
[2019-12-05] MEDS: SERTRALINE HCL 50 MG TABLET (FP) PO SCH (09:52)
[2019-12-05] MEDS: APIXABAN 5 MG TABLET PO SCH ×2 (09:52→21:17)
[2019-12-05] MEDS: PRENATAL VITAMINS W/ FOLIC ACID TABLET (FP) PO SCH (09:52)
[2019-12-05] MEDS: MINERAL OIL/PETROLAT/WATER TOPICAL CREAM 113 GM JAR TP PRN (09:53)
[2019-12-05] MEDS: FAMOTIDINE 20 MG TABLET PO SCH (09:53)
[2019-12-05] MEDS ORDERED: PT OWN MED DRAWER 7, Y5N ONE (14:00)
[2019-12-05] MEDS: MAG HYDROX/AL HYDROX/SIMETH 30 ML UNIT-DOSE CUP PO PRN (19:34)
[2019-12-05] MEDS: THIAMINE HCL 100 MG TABLET (FP) PO SCH (21:16)
[2019-12-05] MEDS: ACETAMINOPHEN 325 MG TABLET (FP) PO PRN (21:17)
[2019-12-05] MEDS: SENNOSIDES 8.6MG TABLET (FP) PO SCH (21:17)
[2019-12-05] MEDS: traZODone HCL 50 MG TABLET (FP) PO SCH (21:17)
[2019-12-05] MEDS: MELATONIN 5 MG TABLETS PO SCH (21:18)
[2019-12-06] MEDS: VITAMINS A AND D TOPICAL OINTMENT 60 GM TUBE TP SCH ×4 (01:07→17:44)
[2019-12-06] MEDS: PANTOPRAZOLE 20 MG TABLET PO SCH (06:34)
[2019-12-06] MEDS: DOCUSATE SODIUM 100 MG CAPSULE (FP) PO SCH ×3 (06:34→22:11)
[2019-12-06] MEDS: GABAPENTIN 400 MG CAPSULE PO SCH ×3 (06:34→22:10)
[2019-12-06] MEDS: NEOMYCIN/POLYMYXIN/BACITRACIN (TRIPLE ANTIBIOTIC) 28 GM OINTMENT TP SCH ×3 (06:35→23:15)
[2019-12-06] MEDS: BUPRENORPHINE/NALOXONE 8 MG/2 MG FILM PACKET SL SCH (06:35)
[2019-12-06] MEDS ORDERED: PT OWN MED DRAWER 7, Y5N ONE ×2 (07:17→13:32)
[2019-12-06] MEDS: hydrOXYzine PAMOATE 50 MG CAPSULE (FP) PO PRN ×3 (07:50→22:10)
[2019-12-06] MEDS: PRENATAL VITAMINS W/ FOLIC ACID TABLET (FP) PO SCH (09:34)
[2019-12-06] MEDS: APIXABAN 5 MG TABLET PO SCH ×2 (09:34→22:10)
[2019-12-06] MEDS: cloNIDine HCL 0.1 MG TABLET PO PRN (09:35)
[2019-12-06] MEDS: SERTRALINE HCL 50 MG TABLET (FP) PO SCH (09:35)
[2019-12-06] MEDS: ARTIFICIAL TEARS (POLYVINYL ALCOHOL) OPTH DROPS OU PRN (09:36)
[2019-12-06] MEDS ORDERED: PANTOPRAZOLE 20 MG TABLET PO SCH (10:00)
[2019-12-06] MEDS: SENNOSIDES 8.6MG TABLET (FP) PO SCH (22:10)
[2019-12-06] MEDS: MELATONIN 5 MG TABLETS PO SCH (22:10)
[2019-12-06] MEDS: THIAMINE HCL 100 MG TABLET (FP) PO SCH (22:10)
[2019-12-06] MEDS: traZODone HCL 50 MG TABLET (FP) PO SCH (22:10)
[2019-12-07] MEDS: VITAMINS A AND D TOPICAL OINTMENT 60 GM TUBE TP SCH ×4 (00:25→17:25)
[2019-12-07] MEDS: BUPRENORPHINE/NALOXONE 8 MG/2 MG FILM PACKET SL SCH (06:36)
[2019-12-07] MEDS: DOCUSATE SODIUM 100 MG CAPSULE (FP) PO SCH ×3 (06:36→21:22)
[2019-12-07] MEDS: PANTOPRAZOLE 20 MG TABLET PO SCH (06:36)
[2019-12-07] MEDS: GABAPENTIN 400 MG CAPSULE PO SCH ×3 (06:36→21:20)
[2019-12-07] MEDS: NEOMYCIN/POLYMYXIN/BACITRACIN (TRIPLE ANTIBIOTIC) 28 GM OINTMENT TP SCH ×3 (06:37→21:21)
[2019-12-07] MEDS: cloNIDine HCL 0.1 MG TABLET PO PRN (09:00)
[2019-12-07] MEDS: APIXABAN 5 MG TABLET PO SCH ×2 (09:36→21:21)
[2019-12-07] MEDS: PRENATAL VITAMINS W/ FOLIC ACID TABLET (FP) PO SCH (09:36)
[2019-12-07] MEDS: SERTRALINE HCL 50 MG TABLET (FP) PO SCH (09:36)
[2019-12-07] MEDS: hydrOXYzine PAMOATE 50 MG CAPSULE (FP) PO PRN ×2 (10:02→21:20)
--- NOTE | 2019-12-07 12:17 | PN ---
S Progress Note Note: Patient is scheduled for discharge tomorrow. Scripts for 30 days supply of medications(Zolooft 100 mg/day, Trazadone 50 mg.hs) will be electronically transmitted to [facility], [address] [place], [place] [id number]
[2019-12-07] MEDS: MAG HYDROX/AL HYDROX/SIMETH 30 ML UNIT-DOSE CUP PO PRN (15:53)
[2019-12-07] MEDS: THIAMINE HCL 100 MG TABLET (FP) PO SCH (21:19)
[2019-12-07] MEDS: SENNOSIDES 8.6MG TABLET (FP) PO SCH (21:20)
[2019-12-07] MEDS: traZODone HCL 50 MG TABLET (FP) PO SCH (21:21)
[2019-12-07] MEDS: MELATONIN 5 MG TABLETS PO SCH (21:21)
[2019-12-07] MEDS ORDERED: SUVOREXANT 15 MG TABLET PO PRN (22:00)
[2019-12-08] MEDS: VITAMINS A AND D TOPICAL OINTMENT 60 GM TUBE TP SCH ×2 (00:28→06:23)
[2019-12-08] MEDS: PANTOPRAZOLE 20 MG TABLET PO SCH (06:22)
[2019-12-08] MEDS: GABAPENTIN 400 MG CAPSULE PO SCH (06:22)
[2019-12-08] MEDS: DOCUSATE SODIUM 100 MG CAPSULE (FP) PO SCH (06:22)
[2019-12-08] MEDS: NEOMYCIN/POLYMYXIN/BACITRACIN (TRIPLE ANTIBIOTIC) 28 GM OINTMENT TP SCH (06:23)
[2019-12-08] MEDS: BUPRENORPHINE/NALOXONE 8 MG/2 MG FILM PACKET SL SCH (06:23)
[2019-12-08 06:53] VITALS: BP 118/79; PULSE 66; TEMP 97.3
[2019-12-08] MEDS: hydrOXYzine PAMOATE 50 MG CAPSULE (FP) PO PRN (08:05)
[2019-12-08] MEDS: PRENATAL VITAMINS W/ FOLIC ACID TABLET (FP) PO SCH (09:04)
[2019-12-08] MEDS: APIXABAN 5 MG TABLET PO SCH (09:04)
[2019-12-08] MEDS: SERTRALINE HCL 50 MG TABLET (FP) PO SCH (09:04)
--- NOTE | 2019-12-08 09:35 | DS ---
[facility] Rehab Discharge Summary - [facility] Rehab Discharge Summary Admission Date: 11/18/19 Discharge Date: 12/08/19 - History Present History: Alcohol dependence Pertinent Past History: 34 years old female with a history of alcohol dependence. She was referred from [facility]. She has medical history of anemia, pulmonary embolism, GERD and she denies psych. history and suicidal ideation at this time. She had Cepheid COVID - 19 PCR done on that was negative. - Discharge Physical Exam Vital Signs: Vital Signs Temperature 97.3 F L 12/08/19 06:51 Pulse Rate 66 12/08/19 06:51 Respiratory Rate 18 12/08/19 06:51 Blood Pressure 118/79 12/08/19 06:51 O2 Sat by Pulse Oximetry (%) 96 12/08/19 06:51 Pertinent Admission Physical Exam Findings: - Physical General Appearance: no apparent distress HEENTM: normocephalic, PERRLA, EOMI, Respiratory: No Respiratory Distress Neck: supple Cardiology: Regular Rhythm & Rate Abdominal: +BS Musculoskeletal: full weight bearing, full ROM Neurological: No cognitive deficits, CN 2-12 intact - Treatment Discharge Condition: Discharge condition good (Medically stable for discharge/), Outpatient referral accepted (Patient will go to [facility] [place]) - Medication Discharge Medications: Ambulatory Orders Apixaban [Eliquis] 5 mg PO BID 11/18/19 Buprenorphine HCl/Naloxone HCl [Suboxone 8 mg-2 mg Sl Tablets] 8 mg SL DAILY 11/18/19 Docusate Sodium [Colace] 100 mg PO TID 11/18/19 Famotidine [Pepcid] 20 mg PO DAILY 11/18/19 Sertraline HCl [Zoloft -] 50 mg PO DAILY #30 tablet 11/28/19 Buprenorphine/Naloxone [Suboxone 8Mg/2Mg Sl Film -] 2 each SL DAILY@0600 7 Days #14 film MDD 16mg 12/07/19 Calcium Carbonate/Vitamin D3 [Calcium 500-Vit D3 400 Tablet] 1,250 mg PO DAILY #7 tablet 12/07/19 Folic Acid 1 mg PO DAILY #7 tablet 12/07/19 Gabapentin [Neurontin] 300 mg PO TID #20 cap 12/07/19 Neomy Sulf/Bacitrac Zn/Poly [Neosporin Top Ointment -] 1 applic TP TID 7 Days #1 applic 12/07/19 Sennosides [Senna] 8.6 mg PO HS #7 cap 12/07/19 Sertraline HCl [Zoloft] 100 mg PO DAILY #30 tablet 12/07/19 traZODone HCL [Desyrel -] 50 mg PO HS #30 tablet 12/07/19 - Medication-Assisted Treatment (MAT) Medication-Assisted Treatment (MAT): Yes Medication Prescribed: Buprenorphine (Patient will return to her provider to continue suboxone treatment.) MAT Follow-up Referral: patient will return to her provider to continue suboxone treatment. - Discharge Instructions Diet, activity, other medical instructions: Diet: as tolerated Activity: as tolerated Other medical instructions: please follow up with aftercare referral. - Diagnosis (1) Alcohol dependence, uncomplicated Current Visit: Yes Status: Acute - Follow-up Referral Minutes to complete discharge: 20 - AMA Did Patient Leave Against Medical Advice: No
== END 2019-12-08 09:33 | disposition home or self-care (01) | DRG 772 ==
LOC: YASAS 15:03 → Y3E 20:08
PROVIDERS: ADMIT Allergy & Immunology; ATTEND Allergy & Immunology
PROC: HZ42ZZZ Group Counseling for Substance Abuse Treatment, Cognitive-Behavioral (ICD-10-PCS; principal; 2019-11-18)
DX: F10.20 Alcohol dependence, uncomplicated (principal); F17.211 Nicotine dependence, cigarettes, in remission; F10.282 Alcohol dependence with alcohol-induced sleep disorder; F10.24 Alcohol dependence with alcohol-induced mood disorder; F41.9 Anxiety disorder, unspecified; I26.99 Other pulmonary embolism without acute cor pulmonale; Z79.01 Long term (current) use of anticoagulants; Z88.5 Allergy status to narcotic agent; D50.9 Iron deficiency anemia, unspecified; G47.00 Insomnia, unspecified; R60.0 Localized edema; K21.9 Gastro-esophageal reflux disease without esophagitis; Z98.84 Bariatric surgery status; Z88.8 Allergy status to other drugs, medicaments and biological substances
CPT/HCPCS: 36415; 71046-TC-FY; 80053; 81003; 81025; 85027; 85660; 86780; 93005; 93010; J0735

== ENCOUNTER 2022-03-30 20:35 | Inpatient (IN) | payer OTHER ==
[2022-03-30 20:56] VITALS: BMI 27.7
[2022-03-30] MEDS ORDERED: P-EPHED 60MG/TRIPROLIDI 2.5MG TABLET PO PRN (21:17)
[2022-03-30] MEDS ORDERED: DICYCLOMINE HCL 10 MG CAPSULE PO PRN (21:17)
[2022-03-30] MEDS ORDERED: MAGNESIUM HYDROX 2400MG/30ML ORAL SUSPENSION 30 ML CUP PO PRN (21:17)
[2022-03-30] MEDS ORDERED: guaiFENesin 200 MG/10 ML 10 ML UNIT-DOSE CUPS PO PRN (21:17)
[2022-03-30] MEDS ORDERED: IBUPROFEN 400 MG TABLET (FP) PO PRN (21:17)
[2022-03-30] MEDS ORDERED: NICOTINE POLACRILEX 2 MG GUM BUC PRN (21:17)
[2022-03-30] MEDS ORDERED: MAG HYDROX/AL HYDROX/SIMETH 30 ML UNIT-DOSE CUP PO PRN (21:17)
[2022-03-30] MEDS ORDERED: LOPERAMIDE HCL 2 MG CAPSULE PO PRN (21:17)
[2022-03-30] MEDS ORDERED: BENZOCAINE/MENTHOL (CHLORASEPTIC ) LOZENGE MM PRN (21:17)
[2022-03-30] MEDS ORDERED: ACETAMINOPHEN 325 MG TABLET (FP) PO PRN (21:17)
[2022-03-30] MEDS ORDERED: NALOXONE HCL (KLOXXADO) 8 MG SPRAY NS PRN (21:17)
[2022-03-30] MEDS ORDERED: chlordiazePOXIDE HCL 25 MG CAPSULE PO ONE (21:17)
[2022-03-30] MEDS ORDERED: IBUPROFEN 600 MG TABLET (FP) PO PRN (21:17)
[2022-03-30] MEDS ORDERED: POLYETHYLENE GLYCOL (HEALTHYLAX) 3350 17 GM PACKET PO PRN (21:17)
[2022-03-30] MEDS ORDERED: chlordiazePOXIDE HCL 25 MG CAPSULE ONE (21:40)
[2022-03-30] MEDS: chlordiazePOXIDE HCL 25 MG CAPSULE PO SCH (22:53)
[2022-03-30] MEDS: MELATONIN 5 MG TABLETS PO SCH (22:55)
[2022-03-30] MEDS: THIAMINE HCL 100 MG TABLET (FP) PO SCH (22:55)
[2022-03-31] MEDS: chlordiazePOXIDE HCL 25 MG CAPSULE PO PRN ×4 (01:09→19:18)
[2022-03-31] MEDS: chlordiazePOXIDE HCL 25 MG CAPSULE PO SCH ×4 (05:12→22:16)
[2022-03-31] MEDS: BUPRENORPHINE/NALOXONE 8 MG/2 MG FILM PACKET SL SCH (05:14)
[2022-03-31] MEDS: PRENATAL VITAMINS W/ FOLIC ACID TABLET (FP) PO SCH (10:10)
[2022-03-31] MEDS: NICOTINE 14 MG/24 HOURS TOPICAL PATCH TD SCH (10:11)
[2022-03-31 15:52] LABS: CALCIUM 8.9 mg/dL (8.5-10.1)
[2022-03-31 15:53] LABS: ALBUMIN 4.2 g/dl (3.4-5.0); BLOOD UREA NITROGEN 16.3 mg/dL (7-18)
[2022-03-31 15:56] LABS: CREATININE 0.8 mg/dL (0.55-1.3)
[2022-03-31 15:57] LABS: BILIRUBIN,TOTAL 1.4 mg/dL (0.2-1); TOT PROT 7.8 g/dl (6.4-8.2)
[2022-03-31 16:12] LABS: HEMATOCRIT 42.8 % (32.4-45.2); HEMOGLOBIN 14.2 GM/dL (10.7-15.3); MCH 31.5 pg (25.7-33.7); MCHC 33.2 g/dl (32.0-36.0); MEAN CELL VOLUME 94.8 fl (80-96); MEAN PLT VOLUME 10.6 fl (7.5-11.1); PLATELET COUNT 148 10^3/uL (134-434); RBC 4.52 M/mm3 (3.60-5.2); RDW 13.3 % (11.6-15.6); WHITE BLOOD COUNT 9.5 K/mm3 (4.0-10.0)
[2022-03-31] MEDS: ACETAMINOPHEN 325 MG TABLET (FP) PO PRN (17:06)
[2022-03-31] MEDS: THIAMINE HCL 100 MG TABLET (FP) PO SCH (22:15)
[2022-03-31] MEDS: traZODone HCL 50 MG TABLET (FP) PO SCH (22:15)
[2022-03-31] MEDS: MELATONIN 5 MG TABLETS PO SCH (22:15)
[2022-04-01] MEDS: BUPRENORPHINE/NALOXONE 8 MG/2 MG FILM PACKET SL SCH (05:55)
[2022-04-01] MEDS: chlordiazePOXIDE HCL 25 MG CAPSULE PO SCH ×4 (05:55→22:03)
[2022-04-01] MEDS: METHOCARBAMOL 500 MG TABLET PO PRN ×2 (09:06→22:10)
[2022-04-01] MEDS: hydrOXYzine PAMOATE 25 MG CAPSULE (FP) PO PRN (09:06)
[2022-04-01] MEDS: PRENATAL VITAMINS W/ FOLIC ACID TABLET (FP) PO SCH (10:08)
[2022-04-01] MEDS: NICOTINE 14 MG/24 HOURS TOPICAL PATCH TD SCH (10:08)
[2022-04-01] MEDS: chlordiazePOXIDE HCL 25 MG CAPSULE PO PRN ×2 (13:34→19:40)
[2022-04-01 16:37] LABS: EPI CELLS >36 /uL (0-25.1); HYALINE CASTS 1 /uL (0-3.1); URINE APPEARANCE CLOUDY; URINE BACTERIA 1363 /uL (0-1359); URINE BILIRUBIN NEGATIVE (NEGATIVE); URINE COLOR YELLOW; URINE GLUCOSE (UA) NEGATIVE (NEGATIVE); URINE KETONE NEGATIVE (NEGATIVE); URINE LEUK ESTERASE 1+ (NEGATIVE); URINE NITRITE NEGATIVE (NEGATIVE); URINE PROTEIN NEGATIVE (NEGATIVE); URINE RBC 39 /uL (0-23.9); URINE UROBILINOGEN 0.2 mg/dL (0.2-1.0); URINE WBC 79 /uL (0-25.8)
[2022-04-01] MEDS: traZODone HCL 50 MG TABLET (FP) PO SCH (22:03)
[2022-04-01] MEDS: THIAMINE HCL 100 MG TABLET (FP) PO SCH (22:03)
[2022-04-01] MEDS: MELATONIN 5 MG TABLETS PO SCH (22:03)
[2022-04-02] MEDS ORDERED: chlordiazePOXIDE HCL 10 MG CAPSULE PO PRN
[2022-04-02] MEDS: BUPRENORPHINE/NALOXONE 8 MG/2 MG FILM PACKET SL SCH (05:41)
[2022-04-02] MEDS: chlordiazePOXIDE HCL 10 MG CAPSULE PO SCH ×4 (05:41→22:12)
[2022-04-02] MEDS: hydrOXYzine PAMOATE 25 MG CAPSULE (FP) PO PRN ×2 (08:39→17:21)
[2022-04-02] MEDS: METHOCARBAMOL 500 MG TABLET PO PRN ×2 (08:39→17:21)
[2022-04-02] MEDS: PRENATAL VITAMINS W/ FOLIC ACID TABLET (FP) PO SCH (10:01)
[2022-04-02] MEDS: NICOTINE 14 MG/24 HOURS TOPICAL PATCH TD SCH (10:02)
[2022-04-02] MEDS: BISMUTH SUBSALICYLATE 524 MG/30 ML PO PRN (10:07)
[2022-04-02] MEDS: NITROFURANTOIN MACROCRYSTAL 50 MG CAPSULE (FP) PO SCH (17:22)
[2022-04-02] MEDS: THIAMINE HCL 100 MG TABLET (FP) PO SCH (22:11)
[2022-04-02] MEDS: MELATONIN 5 MG TABLETS PO SCH (22:11)
[2022-04-02] MEDS: traZODone HCL 50 MG TABLET (FP) PO SCH (22:11)
[2022-04-03] MEDS: METHOCARBAMOL 500 MG TABLET PO PRN ×4 (00:23→23:57)
[2022-04-03] MEDS: NITROFURANTOIN MACROCRYSTAL 50 MG CAPSULE (FP) PO SCH ×5 (00:23→23:51)
[2022-04-03] MEDS: chlordiazePOXIDE HCL 10 MG CAPSULE PO SCH ×2 (05:23→17:12)
[2022-04-03] MEDS: BUPRENORPHINE/NALOXONE 8 MG/2 MG FILM PACKET SL SCH (05:23)
[2022-04-03] MEDS: ACETAMINOPHEN 325 MG TABLET (FP) PO PRN ×2 (05:25→20:23)
[2022-04-03] MEDS: hydrOXYzine PAMOATE 25 MG CAPSULE (FP) PO PRN ×3 (10:15→23:54)
[2022-04-03] MEDS: PRENATAL VITAMINS W/ FOLIC ACID TABLET (FP) PO SCH (10:16)
[2022-04-03] MEDS: NICOTINE 14 MG/24 HOURS TOPICAL PATCH TD SCH (10:16)
[2022-04-03] MEDS ORDERED: chlordiazePOXIDE HCL 10 MG CAPSULE PO ONE (12:01)
[2022-04-03] MEDS: BISMUTH SUBSALICYLATE 524 MG/30 ML PO PRN (15:18)
[2022-04-03] MEDS: MELATONIN 5 MG TABLETS PO SCH (22:11)
[2022-04-03] MEDS: traZODone HCL 50 MG TABLET (FP) PO SCH (22:11)
[2022-04-03] MEDS: THIAMINE HCL 100 MG TABLET (FP) PO SCH (22:11)
[2022-04-04] MEDS: BUPRENORPHINE/NALOXONE 8 MG/2 MG FILM PACKET SL SCH (05:17)
[2022-04-04] MEDS: NITROFURANTOIN MACROCRYSTAL 50 MG CAPSULE (FP) PO SCH ×2 (05:17→12:00)
[2022-04-04] MEDS: chlordiazePOXIDE HCL 10 MG CAPSULE PO ONE (05:17)
[2022-04-04] MEDS: METHOCARBAMOL 500 MG TABLET PO PRN (06:40)
[2022-04-04] MEDS: hydrOXYzine PAMOATE 25 MG CAPSULE (FP) PO PRN ×2 (06:40→15:33)
[2022-04-04] MEDS: PRENATAL VITAMINS W/ FOLIC ACID TABLET (FP) PO SCH (09:23)
[2022-04-04] MEDS: NICOTINE 14 MG/24 HOURS TOPICAL PATCH TD SCH (09:24)
[2022-04-04 09:32] VITALS: RESP 18
[2022-04-04] MEDS ORDERED: hydrOXYzine PAMOATE 25 MG CAPSULE (FP) PO ONE (09:45)
[2022-04-04 14:00] VITALS: BP 117/69; PULSE 85; TEMP 97.5
== END 2022-04-04 15:37 | disposition other institution (70) | DRG 773 ==
LOC: YASAS 20:35 → Y3N 21:38
PROVIDERS: ADMIT Allergy & Immunology; ATTEND Family Medicine
PROC: HZ2ZZZZ Detoxification Services for Substance Abuse Treatment (ICD-10-PCS; principal; 2022-03-30)
DX: F11.23 Opioid dependence with withdrawal (principal); F10.230 Alcohol dependence with withdrawal, uncomplicated; F17.210 Nicotine dependence, cigarettes, uncomplicated; F10.282 Alcohol dependence with alcohol-induced sleep disorder; F10.24 Alcohol dependence with alcohol-induced mood disorder; K21.9 Gastro-esophageal reflux disease without esophagitis; G47.00 Insomnia, unspecified; N39.0 Urinary tract infection, site not specified; R73.9 Hyperglycemia, unspecified; Z98.84 Bariatric surgery status; Z86.711 Personal history of pulmonary embolism; Z91.199 Patient's noncompliance with other medical treatment and regimen due to unspecified reason
CPT/HCPCS: 36415; 80053; 81003; 81025; 82962; 85027; 86780; 87811; 93005; 93010; C9803-CS; U0003; U0005

== ENCOUNTER 2022-04-04 15:49 | Inpatient (IN) | payer OTHER ==
[2022-04-04] MEDS ORDERED: guaiFENesin 200 MG/10 ML 10 ML UNIT-DOSE CUPS PO PRN (16:35)
[2022-04-04] MEDS ORDERED: ACETAMINOPHEN 325 MG TABLET (FP) PO PRN (16:35)
[2022-04-04] MEDS ORDERED: IBUPROFEN 400 MG TABLET (FP) PO PRN (16:35)
[2022-04-04] MEDS ORDERED: P-EPHED 60MG/TRIPROLIDI 2.5MG TABLET PO PRN (16:35)
[2022-04-04] MEDS ORDERED: MAGNESIUM HYDROX 2400MG/30ML ORAL SUSPENSION 30 ML CUP PO PRN (16:35)
[2022-04-04] MEDS ORDERED: POLYETHYLENE GLYCOL (HEALTHYLAX) 3350 17 GM PACKET PO PRN (16:35)
[2022-04-04] MEDS ORDERED: MAG HYDROX/AL HYDROX/SIMETH 30 ML UNIT-DOSE CUP PO PRN (16:35)
[2022-04-04] MEDS ORDERED: BENZOCAINE/MENTHOL (CHLORASEPTIC ) LOZENGE MM PRN (16:35)
[2022-04-04] MEDS ORDERED: LOPERAMIDE HCL 2 MG CAPSULE PO PRN (16:35)
[2022-04-04] MEDS ORDERED: METHOCARBAMOL 500 MG TABLET PO ONE (17:45)
[2022-04-04] MEDS: NITROFURANTOIN MACROCRYSTAL 50 MG CAPSULE (FP) PO SCH (17:56)
[2022-04-04] MEDS: hydrOXYzine PAMOATE 25 MG CAPSULE (FP) PO PRN (21:53)
[2022-04-04] MEDS: THIAMINE HCL 100 MG TABLET (FP) PO SCH (21:53)
[2022-04-04] MEDS: MELATONIN 5 MG TABLETS PO PRN (21:59)
[2022-04-05] MEDS: NITROFURANTOIN MACROCRYSTAL 50 MG CAPSULE (FP) PO SCH ×4 (00:17→17:46)
[2022-04-05] MEDS: hydrOXYzine PAMOATE 25 MG CAPSULE (FP) PO PRN ×3 (06:27→21:53)
[2022-04-05] MEDS: BUPRENORPHINE/NALOXONE 8 MG/2 MG FILM PACKET SL SCH (06:27)
[2022-04-05] MEDS: PRENATAL VITAMINS W/ FOLIC ACID TABLET (FP) PO SCH (10:27)
[2022-04-05] MEDS: METHOCARBAMOL 500 MG TABLET PO PRN (21:53)
[2022-04-05] MEDS: THIAMINE HCL 100 MG TABLET (FP) PO SCH (21:53)
[2022-04-05] MEDS: MELATONIN 5 MG TABLETS PO PRN (21:54)
[2022-04-05] MEDS ORDERED: traZODone HCL 50 MG TABLET (FP) PO SCH (22:00)
[2022-04-06] MEDS: NITROFURANTOIN MACROCRYSTAL 50 MG CAPSULE (FP) PO SCH ×4 (00:15→18:00)
[2022-04-06] MEDS: BUPRENORPHINE/NALOXONE 8 MG/2 MG FILM PACKET SL SCH (06:22)
[2022-04-06] MEDS: hydrOXYzine PAMOATE 25 MG CAPSULE (FP) PO PRN ×5 (06:23→22:02)
[2022-04-06] MEDS: PRENATAL VITAMINS W/ FOLIC ACID TABLET (FP) PO SCH (10:10)
[2022-04-06] MEDS: METHOCARBAMOL 500 MG TABLET PO PRN ×2 (10:11→22:02)
[2022-04-06] MEDS: THIAMINE HCL 100 MG TABLET (FP) PO SCH (22:02)
[2022-04-06] MEDS ORDERED: traZODone HCL 50 MG TABLET (FP) PO ONE (22:09)
[2022-04-07] MEDS: NITROFURANTOIN MACROCRYSTAL 50 MG CAPSULE (FP) PO SCH ×4 (00:09→17:41)
[2022-04-07] MEDS: BUPRENORPHINE/NALOXONE 8 MG/2 MG FILM PACKET SL SCH (06:34)
[2022-04-07] MEDS: METHOCARBAMOL 500 MG TABLET PO PRN (06:34)
[2022-04-07] MEDS: hydrOXYzine PAMOATE 25 MG CAPSULE (FP) PO PRN ×4 (07:05→21:48)
[2022-04-07] MEDS: PRENATAL VITAMINS W/ FOLIC ACID TABLET (FP) PO SCH (10:23)
[2022-04-07] MEDS ORDERED: COLLOIDAL OATMEAL 1 BAR EACH TP PRN (13:19)
[2022-04-07] MEDS ORDERED: MINERAL OIL/PETROLAT/WATER TOPICAL CREAM 454 GM JAR TP PRN (13:19)
[2022-04-07] MEDS ORDERED: GABAPENTIN 300 MG CAPSULE PO SCH (14:00)
[2022-04-07] MEDS ORDERED: FAMOTIDINE 20 MG TABLET PO SCH (15:00)
[2022-04-07] MEDS: GABAPENTIN 100 MG CAPSULE PO SCH ×2 (16:07→21:47)
[2022-04-07] MEDS: BACLOFEN 10 MG TABLET (FP) PO PRN ×2 (16:14→21:48)
[2022-04-07] MEDS: traZODone HCL 50 MG TABLET (FP) PO SCH (21:47)
[2022-04-07] MEDS: THIAMINE HCL 100 MG TABLET (FP) PO SCH (21:47)
[2022-04-08] MEDS: GABAPENTIN 100 MG CAPSULE PO SCH ×3 (06:28→21:27)
[2022-04-08] MEDS: BUPRENORPHINE/NALOXONE 8 MG/2 MG FILM PACKET SL SCH (06:29)
[2022-04-08] MEDS ORDERED: FAMOTIDINE 20 MG TABLET PO SCH (07:00)
[2022-04-08] MEDS: hydrOXYzine PAMOATE 25 MG CAPSULE (FP) PO PRN ×4 (07:04→21:28)
[2022-04-08] MEDS: BACLOFEN 10 MG TABLET (FP) PO PRN ×3 (07:05→21:27)
[2022-04-08] MEDS ORDERED: CALCIUM 500MG/VIT-D 200 UNITS COMBO TABLET (FP) PO SCH ×2 (10:00)
[2022-04-08] MEDS: PRENATAL VITAMINS W/ FOLIC ACID TABLET (FP) PO SCH (10:06)
[2022-04-08] MEDS: CHOLECALCIFEROL (VIT D3) 1,000 UNIT (25 MCG) TABLET PO SCH (10:06)
[2022-04-08] MEDS: CALCIUM (OYSTER SHELL) 500 MG TABLET (FP) PO SCH (10:06)
[2022-04-08] MEDS: THIAMINE HCL 100 MG TABLET (FP) PO SCH (21:27)
[2022-04-08] MEDS: traZODone HCL 50 MG TABLET (FP) PO SCH (21:28)
[2022-04-08] MEDS: MELATONIN 5 MG TABLETS PO PRN (21:29)
[2022-04-09] MEDS ORDERED: PANTOPRAZOLE 40 MG TABLET PO SCH (06:00)
[2022-04-09] MEDS: BUPRENORPHINE/NALOXONE 8 MG/2 MG FILM PACKET SL SCH (06:21)
[2022-04-09] MEDS: GABAPENTIN 100 MG CAPSULE PO SCH (06:21)
[2022-04-09] MEDS: BACLOFEN 10 MG TABLET (FP) PO PRN (07:03)
[2022-04-09] MEDS: hydrOXYzine PAMOATE 25 MG CAPSULE (FP) PO PRN ×2 (07:04→11:17)
[2022-04-09 07:21] VITALS: BP 104/73; PULSE 60; RESP 18; TEMP 97.5
[2022-04-09] MEDS: PRENATAL VITAMINS W/ FOLIC ACID TABLET (FP) PO SCH (09:36)
[2022-04-09] MEDS: CHOLECALCIFEROL (VIT D3) 1,000 UNIT (25 MCG) TABLET PO SCH (09:36)
[2022-04-09] MEDS: CALCIUM (OYSTER SHELL) 500 MG TABLET (FP) PO SCH (09:36)
[2022-04-09] MEDS ORDERED: WITCH HAZEL 50% (TUCKS) 40 PAD/JAR PAD TP PRN (09:51)
[2022-04-09] MEDS ORDERED: HYDROCORTISONE 2.5% TOPICAL CREAM 30 GM TUBE TP SCH (10:00)
[2022-04-09] MEDS ORDERED: LIDOCAINE 5% TOPICAL PATCH TP SCH (10:00)
[2022-04-09] MEDS ORDERED: LIDOCAINE PATCH REMOVAL MC SCH (22:00)
[2022-04-09] MEDS ORDERED: METHYL SALICYLATE/MENTHOL OINT 30 GM TUBE TP SCH (22:00)
== END 2022-04-09 11:25 | disposition home or self-care (01) | DRG 772 ==
LOC: YASAS 15:49 → Y5N 15:54
PROVIDERS: ADMIT Allergy & Immunology; ATTEND Psychiatry & Neurology Pain Medicine
PROC: HZ42ZZZ Group Counseling for Substance Abuse Treatment, Cognitive-Behavioral (ICD-10-PCS; principal; 2022-04-04)
DX: F11.20 Opioid dependence, uncomplicated (principal); F10.20 Alcohol dependence, uncomplicated; F10.24 Alcohol dependence with alcohol-induced mood disorder; D64.9 Anemia, unspecified; K21.9 Gastro-esophageal reflux disease without esophagitis; L85.3 Xerosis cutis; Z87.440 Personal history of urinary (tract) infections; Z98.84 Bariatric surgery status; Z86.711 Personal history of pulmonary embolism; Z88.8 Allergy status to other drugs, medicaments and biological substances; Z91.199 Patient's noncompliance with other medical treatment and regimen due to unspecified reason
CPT/HCPCS: 82962; J0475

== ENCOUNTER 2023-05-30 16:39 | Inpatient (IN) | payer OTHER ==
[2023-05-30 18:06] VITALS: BMI 27.4
[2023-05-30] MEDS ORDERED: POLYETHYLENE GLYCOL (HEALTHYLAX) 3350 17 GM PACKET PO PRN (19:56)
[2023-05-30] MEDS ORDERED: MAG HYDROX/AL HYDROX/SIMETH 30 ML UNIT-DOSE CUP PO PRN (19:56)
[2023-05-30] MEDS ORDERED: ACETAMINOPHEN 325 MG TABLET (FP) PO PRN (19:56)
[2023-05-30] MEDS ORDERED: BENZOCAINE/MENTHOL (CHLORASEPTIC ) LOZENGE MM PRN (19:56)
[2023-05-30] MEDS ORDERED: IBUPROFEN 400 MG TABLET (FP) PO PRN (19:56)
[2023-05-30] MEDS ORDERED: ONDANSETRON *ODT* 4 MG TABLET SL PRN (19:56)
[2023-05-30] MEDS ORDERED: BENZONATATE 200 MG CAPSULE PO PRN (19:56)
[2023-05-30] MEDS ORDERED: NALOXONE HCL 0.4 MG/ML VIAL IM PRN (19:56)
[2023-05-30] MEDS ORDERED: LOPERAMIDE HCL 2 MG CAPSULE PO PRN (19:56)
[2023-05-30] MEDS ORDERED: guaiFENesin 600 MG TABLET.ER (FP) PO PRN (19:56)
[2023-05-30] MEDS ORDERED: MAGNESIUM HYDROX 2400MG/30ML ORAL SUSPENSION 30 ML CUP PO PRN (19:56)
[2023-05-30] MEDS ORDERED: NALOXONE HCL (KLOXXADO) 8 MG SPRAY NS PRN (19:56)
[2023-05-30] MEDS ORDERED: DICYCLOMINE HCL 10 MG CAPSULE PO PRN (19:56)
[2023-05-30] MEDS ORDERED: BISMUTH SUBSALICYLATE 524 MG/30 ML PO PRN (19:56)
[2023-05-30] MEDS ORDERED: methaDONE HCL 10 MG TABLET (FOR DETOX USE ONLY) ONE (20:07)
[2023-05-30] MEDS: methaDONE HCL 10 MG TABLET (FOR DETOX USE ONLY) PO ONE (20:18)
[2023-05-30] MEDS: MELATONIN 5 MG TABLETS PO SCH (22:40)
[2023-05-30] MEDS: CEPHALEXIN MONOHYDRATE 500 MG CAPSULE (UD) PO SCH (22:40)
[2023-05-30] MEDS: THIAMINE HCL 100 MG TABLET (FP) PO SCH (22:40)
[2023-05-30] MEDS: SULFAMETHOXAZOLE/TRIMETHOPRIM 800MG/160MG D.S. TABLET PO SCH (22:40)
[2023-05-31] MEDS ORDERED: methaDONE HCL 10 MG TABLET (FOR DETOX USE ONLY) PO ONE (01:00)
[2023-05-31] MEDS: PRENATAL VITAMINS W/ FOLIC ACID TABLET (FP) PO SCH (09:47)
[2023-05-31] MEDS: hydrOXYzine PAMOATE 25 MG CAPSULE (FP) PO PRN (09:47)
[2023-05-31] MEDS: METHOCARBAMOL 500 MG TABLET PO PRN (09:47)
[2023-05-31 10:56] LABS: HEMATOCRIT 36.9 % (32.4-45.2); HEMOGLOBIN 12.5 GM/dL (10.7-15.3); MCH 32.6 pg (25.7-33.7); MCHC 33.9 g/dl (32.0-36.0); MEAN CELL VOLUME 96.1 fl (80-96); MEAN PLT VOLUME 9.3 fl (7.5-11.1); PLATELET COUNT 273 10^3/uL (134-434); RBC 3.84 M/mm3 (3.60-5.2); RDW 12.8 % (11.6-15.6); WHITE BLOOD COUNT 9.7 K/mm3 (4.0-10.0)
[2023-05-31 10:59] LABS: POTASSIUM 4.4 mmol/L (3.5-5.1)
[2023-05-31 11:01] LABS: BLOOD UREA NITROGEN 19.2 mg/dL (7-18); CALCIUM 8.3 mg/dL (8.5-10.1)
[2023-05-31] MEDS: OLANZapine 5 MG TABLET PO SCH (11:03)
[2023-05-31 11:04] LABS: CREATININE 0.8 mg/dL (0.55-1.3)
[2023-05-31 11:06] LABS: BILIRUBIN,TOTAL 0.2 mg/dL (0.2-1); TOT PROT 6.2 g/dl (6.4-8.2)
[2023-05-31] MEDS: traZODone HCL 50 MG TABLET (FP) PO SCH (21:13)
[2023-05-31] MEDS: OLANZapine 10 MG TABLET PO SCH (21:13)
[2023-06-01] MEDS: methaDONE HCL 10 MG TABLET (FOR DETOX USE ONLY) PO ONE (09:16)
[2023-06-02] MEDS: FAMOTIDINE 20 MG TABLET PO SCH (15:11)
[2023-06-02] MEDS: MINERAL OIL/PETROLAT/WATER TOPICAL CREAM 113 GM JAR TP SCH (22:22)
[2023-06-03] MEDS: methaDONE HCL 10 MG TABLET (FOR DETOX USE ONLY) PO ONE (09:36)
[2023-06-03 14:03] LABS: URINE APPEARANCE CLEAR; URINE BILIRUBIN NEGATIVE (NEGATIVE); URINE COLOR YELLOW; URINE GLUCOSE (UA) NEGATIVE (NEGATIVE); URINE KETONE NEGATIVE (NEGATIVE); URINE LEUK ESTERASE NEGATIVE (NEGATIVE); URINE NITRITE NEGATIVE (NEGATIVE); URINE PROTEIN NEGATIVE (NEGATIVE); URINE UROBILINOGEN 0.2 mg/dL (0.2-1.0)
[2023-06-03] MEDS: IBUPROFEN 600 MG TABLET (FP) PO PRN (16:17)
[2023-06-04 09:09] VITALS: TEMP 97.7
[2023-06-04 13:07] VITALS: BP 113/72; PULSE 62; RESP 18
== END 2023-06-04 13:48 | disposition home or self-care (01) | DRG 773 ==
LOC: YASAS 16:39 → Y3N 19:40
PROVIDERS: ADMIT Allergy & Immunology; ATTEND Surgery
PROC: HZ2ZZZZ Detoxification Services for Substance Abuse Treatment (ICD-10-PCS; principal; 2023-05-30)
DX: F11.23 Opioid dependence with withdrawal (principal); F14.20 Cocaine dependence, uncomplicated; F17.210 Nicotine dependence, cigarettes, uncomplicated; F29 Unspecified psychosis not due to a substance or known physiological condition; L03.113 Cellulitis of right upper limb; L03.114 Cellulitis of left upper limb; L03.115 Cellulitis of right lower limb; L03.116 Cellulitis of left lower limb; Z98.84 Bariatric surgery status; Z88.8 Allergy status to other drugs, medicaments and biological substances
CPT/HCPCS: 36415; 80053; 81003; 85027; 86780; 93005; 93010